=== PATIENT | male | born 1975 | race African-American/Black ===

== ENCOUNTER 2017-07-12 19:29 | Inpatient (IN) | payer OTHER, MEDICARE ==
[~2017-07-12] VITALS: Ht 182.9 cm; Wt 65.8 kg
[~2017-07-12 19:29] MED LIST: AUGMENTIN 875 M1 TAB PO; FERROUS SULFAT325 M3 PO; FOLIC ACID 1 MG PO; FOLIC ACID1 M1 PO; IBUPROFEN400 M1 PO; MOTRIN 600 MG600 MG PO; MULTIVITAMIN1 TAB PO; NAPROSYN 500 M500 MG PO; OMEPRAZOLE D/R20 MG PO; PERCOCET 325 MG1 TA2 PO; PERCOCET 5-3251 EACH PO; TRAMADOL HCL50 M1 PO
--- NOTE | 2017-07-12 19:56 | ED CARDIAC/CP/PALPITATIONS ---
History of Present Illness General Chief Complaint: General Adult Stated Complaint: BIBA FOR RAPID A. FIB Source: patient, old records, EMS Exam Limitations: no limitations Vital Signs & Intake/Output Vital Signs & Intake/Output Vital Signs Date Time Temp Pulse Resp B/P B/P Pulse O2 O2 Flow FiO2 Mean Ox Delivery Rate 07/12 2302 97.1 61 16 146/73 97 Room Air 07/12 2016 81 16 133/85 97 Room Air 07/12 2008 164 162/82 07/12 2000 168 07/12 1954 181 07/12 1946 182 07/12 1945 181 07/12 1944 97.8 182 20 143/84 99 Room Air 07/12 1940 177 Triage Note: PT BIBA AFTER BEGINNING TO FEEL PALPITATIONS DURING A CLASS. INSTRUCTOR ON SITE MEASURED SBP IN 180s AND HR IN 180s. EMS ON SCENE FOUND SAME. BG IN 140s. ADENOSINE x2 AND CARDIZEM 20 WITHOUT EFFECT. #16 PLACED IN FIELD. PT ARRIVES A&O, ONLY C/O PALPITATIONS, NO CP Triage Nurses Notes Reviewed? yes Onset: Just prior to arrival Duration: minute(s):, constant, continues in ED Timing: recent history Quality/Severity: moderate, severe Location: substernal Radiation: no radiation Activities at Onset: activity Prior Chest Pain/Card Workup: no prior cardiac workup Modifying Factors: Worsens With: exercise, movement. Nitro Today/Relief: no nitro taken today Aspirin Today: no aspirin today Associated Symptoms: weakness HPI: Prior to admission patient was EMt class and felt palpitations and rapid heart rate worse with exertion. He denies fever chills nausea vomiting diarrhea abdominal pain chest pain shortness of breath headache dysuria rash bleeding stimulate use tobacco use. (Poncho MARX,Cristian) Allergies Coded Allergies: meperidine (From DEMEROL) (Intermediate, NAUSEA 01/01/16) Sulfa (Sulfonamide Antibiotics) (UNKNOWN 07/12/17) Reconcile Medications Acetylcysteine (NAC) (Unknown Strength) CAPSULE 500 MG PO DAILY SUPPLEMENT ( Reported) Ferrous Gluconate (IRON) (Unknown Strength) TABLET (Unknown Dose) PO Q30D SUPPLEMENT (Reported) Phosphatidyl Serine (Phosphatidylserine) (Unknown Strength) POWDER (Unknown Dose) PO DAILY SUPPLEMENT (Reported) [PROTLYTIC ENZYME] 600 MG PO BID SUPPLEMENT (Reported) Vitamin B Complex 1 EACH CAPSULE 1 CAP PO DAILY SUPPLEMENT (Reported) (Malika MARX,Benjamin Simms) Past History Travel History Traveled to [place] past 21 day No Medical History Any Pertinent Medical History? see below for history Neurological: NONE EENT: NONE Cardiovascular: heart murmur Respiratory: O2 SAT 90% AT BASELINE R/T BAD CASE OF PNEUMONIA W/ RESULTING SCAR TISSUE Gastrointestinal: NONE Hepatic: NONE Renal: NONE Musculoskeletal: NONE Psychiatric: NONE Endocrine: NONE Blood Disorders: sickle cell disease Cancer(s): NONE SWITCHER/Reproductive: NONE Other Medical Hx: Pulmonary coccidioidomycosis History of MRSA: No History of VRE: No History of CDIFF: No Influenza Vaccine: 01/20/13 Surgical History Surgical History: cholecystectomy Psychosocial History Who do you live with Other (see notes) Services at Home None What is your primary language Solomon Islander Tobacco Use: Never used ETOH Use: denies use Family History Family History, If Any: FATHER Sickle cell trait MOTHER Sickle cell trait Hx Contributory? No (Cristian Isaac MD) Review of Systems Review of Systems Constitutional: Reports: no symptoms. EENTM: Reports: no symptoms. Respiratory: Reports: no symptoms. Cardiovascular: Reports: see HPI, palpitations. GI: Reports: no symptoms. Genitourinary: Reports: no symptoms. Musculoskeletal: Reports: no symptoms. Skin: Reports: no symptoms. Neurological/Psychological: Reports: no symptoms. Hematologic/Endocrine: Reports: no symptoms. Immunologic/Allergic: Reports: no symptoms. All Other Systems: Reviewed and Negative (Cristian Isaac MD) Physical Exam Physical Exam General Appearance: well developed/nourished, alert, awake, anxious, mild distress, thin Head: atraumatic, normal appearance Eyes: Bilateral: normal appearance, PERRL, EOMI. Ears, Nose, Throat: normal pharynx, normal ENT inspection, hearing grossly normal Neck: normal inspection, supple, full range of motion, no midline tenderness Respiratory: normal breath sounds, chest non-tender, no respiratory distress, quiet respiration, lungs clear Cardiovascular: regular rate/rhythm, normal peripheral pulses, tachycardia, norml femoral pulses equa Peripheral Pulses: 4+ carotid (R), 4+ carotid (L) Gastrointestinal: normal bowel sounds, soft, non-tender Back: normal inspection, normal range of motion Extremities: normal inspection, normal capillary refill, normal range of motion, no edema Neurologic/Psych: no motor/sensory deficits, awake, alert, oriented x 3, normal gait, normal mood/affect, onion tier II-XII nml as tested Reflexes: 2+: bicep (R), bicep (L). Skin: intact, normal color, warm/dry Lymphatic: no anterior cervical ezra Core Measures ACS in differential dx? Yes CVA/TIA Diagnosis No Sepsis Present: No Sepsis Focused Exam Completed? No (Poncho MARX,Cristian) Progress Differential Diagnosis: atrial fibrillation, hyperkalemia, hyperthyroid, PSVT, V -fib/V-Tach, WPW syndrome Plan of Care: Orders Procedure Date/time Status Nothing by Mouth 07/13 B Active Patient Data 07/13 2323 Active Saline Lock 07/[address] in observation 07/12 2250 Active Misc Message 07/12 2250 Active ED Holding Orders 07/12 2250 Active Vital Signs 07/12 2250 Active Code Status 07/12 2250 Active EKG 07/12 2029 Active TOTAL TRIODOTHYROXINE 07/12 1945 Complete FREE T4 07/12 1945 Complete TSH REFLEX 07/12 1934 Complete TROPONIN LEVEL 07/12 1934 Complete MAGNESIUM 07/12 1934 Complete COMPREHENSIVE METABOLIC PANEL 07/12 1934 Complete CBC WITHOUT DIFFERENTIAL 07/12 1934 Complete EKG 07/12 1930 Active Current Medications Sig/[place] Start time Last Medication Dose Stop Time Status Admin Adenosine 12 MG ONCE ONE 07/12 2014 CAN (Adenocard) 07/13 2015 Diltiazem HCl 20 MG ONCE ONE 07/12 2014 CAN (Cardizem) 07/13 2015 Adenosine 12 MG ONCE ONE 07/13 1999 CAN (Adenocard) 07/12 2000 Adenosine 12 MG ONCE ONE 07/13 1999 CAN (Adenocard) 07/12 2000 Magnesium Sulfate 1 GM Q2H 07/13 1999 AC 07/12 (Mag Sulfate in D5) 07/12 6099 195 Dextrose/Water 100 ML (D5W) Laboratory Tests 07/12/171945: Anion Gap 18 H, Estimated GFR > 60, BUN/Creatinine Ratio 15.8, Glucose 128 H, Calcium 9.0, Magnesium 1.6, Total Bilirubin 6.5 H, AST 65 H, ALT 48, Alkaline Phosphatase 89, Troponin I < 0.01, Total Protein 8.7 H, Albumin 4.7, Globulin 4.0, Albumin/Globulin Ratio 1.2, Free T4 1.43, Total T3 0.91 L, TSH &T3 &Free T4 Intrp 5.510 H, CBC w Diff MAN DIFF ORDERED, RBC 1.94 L, MCV 96.8 H, MCH 34.3 H, MCHC 35.5, RDW 28.3 H, MPV 7.6, Gran % 72.5, Lymphocytes % 17.5 L, Monocytes % 8.1, Eosinophils % 1.5, Basophils % 0.4, Absolute Granulocytes 16.7 H, Segmented Neutrophils 81 H, Band Neutrophils 1, Absolute Lymphocytes 4.0 H, Lymphocytes 14 L, Monocytes 4, Absolute Monocytes 1.9 H, Absolute Eosinophils 0.4, Absolute Basophils 0.1, Platelet Estimate VERIFIED BY SMEAR, Polychromasia 1+, Poikilocytosis 2+, Anisocytosis 2+, Macrocytic Cells 1+, Fld Total RBCs Counted 100 Initial ED EKG: rhythm (SVT), RBBB Prior EKG: changed Hand-Off Endorsed To: Benjamin Daly MD Endorsed Time: 2018 Pending: consult, labs Comments: Miscommunication of adenosine 12mg IV x2 given as cardizem 12 mg IV x2 (Poncho MARX,Cristian) CXR Impression: no acute abnormality, no infiltrates, normal size heart, normal mediastinum, PATIENT: CARMENZA REYNA PRESENT AGE: 41 PATIENT ACCOUNT NO: [id number] : 75 LOCATION: [facility] ORDERING PHYSICIAN: Benjamin Daly MD SERVICE DATE: 07/12/17 EXAM TYPE: RAD - XRY- PORTABLE CHEST XRAY EXAMINATION: XR PORTABLE CHEST CLINICAL INFORMATION: Palpitations COMPARISON: 01/07/2016 TECHNIQUE: Portable frontal view of the chest was obtained. FINDINGS: No acute finding here. Chronic change in the right upper lung zone. No obvious failure or infiltrate. No effusion. IMPRESSION: No convincing evidence for an acute process portable chest. DICTATED BY: Darek Valdivia MD DATE/TIME DICTATED:07/12/172029 COMMERCIAL LITIGATION PARALEGAL:JAMIE DATE/TIME TRANSCRIBED:07/12/172029 CONFIDENTIAL, DO NOT COPY WITHOUT APPROPRIATE AUTHORIZATION. <Electronically signed in Other Vendor System> SIGNED BY: Darek Valdivia MD 07/12/172033 Repeat EKG: changed (nsr,80, no delta waves) (Malika MARX,Benjamin Simms) Departure Departure Disposition: STILL A PATIENT Condition: Stable Clinical Impression Primary Impression: SVT (supraventricular tachycardia) Secondary Impressions: RBBB Referrals: Patient Has No Primary Care Dr (PCP) Departure Forms: Customer Survey General Discharge Information (Cristian Isaac MD) Departure Comments 07/12/17, 20:26, after multiple rounds of diltiazem, adenosine, amio 150mg iv, pt recalcitrant to interventions. Pt then given lopressor 5mg iv, pt converted to nsr in 80's. Observation Note Spoke With: Kenneth Valverde MDjenn Place Patient In: Non-ED OBS Care Area Rationale for Observation: My rational for observation is as follows . pt with svt, requiring multiple rounds of medications to return to NSR.... pt merits monitoring, serial trops, ekg's, cards eval in am. discussed with dr. tobi lawson. (Malika MARX,Benjamin Simms) Critical Care Note Critical Care Note Critical Care Time: 30-74 min (40) (Cristian Isaac MD)
[2017-07-12 19:58] LABS: ABSOLUTE BASOPHIL COUNT 0.1 /CUMM (0.0-0.2); ABSOLUTE EOSINOPHIL COUNT 0.4 /CUMM (0.0-0.7); ABSOLUTE GRANULOCYTE CT 16.7 /CUMM (1.4-6.5); ABSOLUTE MONOCYTE COUNT 1.9 /CUMM (0.10-0.60); BASOPHIL % 0.4 % (0.0-2.0); EOSINOPHIL % 1.5 % (0-5); GRANULOCYTE % 72.5 % (42.2-75.2); MEAN CORPUSCULAR HGB 34.3 PG (27.0-31.0); MEAN CORPUSCULAR HGB CONC 35.5 G/DL (33.0-37.0); MEAN CORPUSCULAR VOLUME 96.8 FL (80.0-94.0); MEAN PLATELET VOLUME 7.6 FL (7.4-10.4); PLATELET COUNT 616 /CUMM (130-400); RBC DISTRIBUTION WIDTH 28.3 % (11.5-14.5); RED BLOOD CELL CT 1.94 /CUMM (4.70-6.10)
[2017-07-12 20:03] LABS: HEMATOCRIT 18.8 % (42-52)
[2017-07-12] MEDS ORDERED: NAC600 M1 PO (20:19)
[2017-07-12] MEDS ORDERED: VITAMIN B COMP1 EACH PO (20:20)
[2017-07-12] MEDS ORDERED: [UNRECOGNIZED DRUG - OTHER] PO (20:20)
[2017-07-12] MEDS ORDERED: IRON256 MG PO (20:21)
[2017-07-12] MEDS ORDERED: PHOSPHATIDYLSERI1 GM PO (20:22)
--- NOTE | 2017-07-12 20:34 | RADIOLOGY REPORT ---
EXAMINATION: XR PORTABLE CHEST CLINICAL INFORMATION: Palpitations COMPARISON: 01/07/2016 TECHNIQUE: Portable frontal view of the chest was obtained. FINDINGS: No acute finding here. Chronic change in the right upper lung zone. No obvious failure or infiltrate. No effusion. IMPRESSION: No convincing evidence for an acute process portable chest.
--- NOTE | 2017-07-12 23:25 | History & Physical ---
Yusef Bradshaw MD 07/12/17 7805: General Information and HPI History of Present Illness: Mr. Reyna is a 41-year-old male with past medical history of sickle cell disease who presents with complaints of palpitations. 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 He alerted the class instructor who took his blood pressure and heart rate noticed that both were greatly elevated. He then decided to come in for further evaluation. In the field, but did initiate tachycardia medical protocol. In the emergency room, the protocol was again initiated and his rhythm broke. The patient has had full episodes like this previously. 4 years ago, he had a complete workup including Holter monitoring that was negative. He also had 2 episodes in the past few weeks that went away with deep breathing. At this time of interview, the patient now feels much better. He denies any smoking, alcohol use, recreational drug use. Of note, the patient does not take any preventative medications for his sickle cell disease and instead relies on naturopathic medicine including acetylcysteine, ferrous gluconate, phosphatidylserine, protlytic enzyme, and vitamin B complex. Allergies/Medications Allergies: Coded Allergies: meperidine (From DEMEROL) (Intermediate, NAUSEA 01/01/16) Sulfa (Sulfonamide Antibiotics) (UNKNOWN 07/12/17) Home Med list Acetylcysteine (NAC) (Unknown Strength) CAPSULE 500 MG PO DAILY SUPPLEMENT ( Reported) Ferrous Gluconate (IRON) (Unknown Strength) TABLET (Unknown Dose) PO Q30D SUPPLEMENT (Reported) Phosphatidyl Serine (Phosphatidylserine) (Unknown Strength) POWDER (Unknown Dose) PO DAILY SUPPLEMENT (Reported) [PROTLYTIC ENZYME] 600 MG PO BID SUPPLEMENT (Reported) Vitamin B Complex 1 EACH CAPSULE 1 CAP PO DAILY SUPPLEMENT (Reported) Past History Travel History Traveled to [place] past 21 day No Medical History Neurological: NONE EENT: NONE Cardiovascular: heart murmur Respiratory: O2 SAT 90% AT BASELINE R/T BAD CASE OF PNEUMONIA W/ RESULTING SCAR TISSUE Gastrointestinal: NONE Hepatic: NONE Renal: NONE Musculoskeletal: NONE Psychiatric: NONE Endocrine: NONE Blood Disorders: sickle cell disease Cancer(s): NONE LIVING NURSE/Reproductive: NONE Other Medical Hx: Pulmonary coccidioidomycosis History of MRSA: No History of VRE: No History of CDIFF: No Surgical History Surgical History: cholecystectomy Past Family/Social History Family History Relations & Conditions if any FATHER Sickle cell trait MOTHER Sickle cell trait Psychosocial History Who Do You Live With? spouse Services at Home: None Primary Language: Lao ETOH Use: denies use Functional Ability ADLs Independent: dressing, eating, toileting, bathing. Ambulation: independent IADLs Independent: shopping, housework, finances, food prep, telephone, transportation , medication admin. Review of Systems Review of Systems Constitutional: Reports: no symptoms. EENTM: Reports: no symptoms. Cardiovascular: Reports: see HPI. Respiratory: Reports: no symptoms. GI: Reports: no symptoms. Genitourinary: Reports: no symptoms. Musculoskeletal: Reports: no symptoms. Skin: Reports: no symptoms. Neurological/Psychological: Reports: no symptoms. Hematologic/Endocrine: Reports: no symptoms. Immunologic/Allergic: Reports: no symptoms. All Other Systems: Reviewed and Negative Exam & Diagnostic Data Last 24 Hrs of Vital Signs/I&O Vital Signs Date Time Temp Pulse Resp B/P B/P Pulse O2 O2 Flow FiO2 Mean Ox Delivery Rate 07/13 0148 97.9 58 20 160/80 97 Nasal 2.0L Cannula 07/13 0142 Nasal 2.0L Cannula 07/13 0125 96.4 56 20 165/75 97 Nasal 2.0L Cannula 07/12 2302 97.1 61 16 146/73 97 Room Air 07/12 2016 81 16 133/85 97 Room Air 07/12 2008 164 162/82 07/12 2000 168 07/12 1954 181 07/12 1946 182 07/12 1945 181 07/12 1944 97.8 182 20 143/84 99 Room Air 07/12 1940 177 Intake & Output 07/13 0800 07/13 0000 07/12 1600 Intake Total 200 Output Total Balance 200 Intake, IV 200 Patient 64.183 kg Weight Physical Exam General Appearance Alert, Oriented X3, Cooperative, No Acute Distress Skin No Rashes, No Breakdown, No Significant Lesion Cardiovascular Regular Rate, Normal S1, Normal S2 Lungs Clear to Auscultation Abdomen Normal Bowel Sounds, Soft, No Tenderness Extremities No Edema, Normal Pulses, No Tenderness/Swelling Last 24 Hrs of Labs/Juan Pablo: Laboratory Tests 07/12/171945: Anion Gap 18 H, Estimated GFR > 60, BUN/Creatinine Ratio 15.8, Glucose 128 H, Calcium 9.0, Magnesium 1.6, Total Bilirubin 6.5 H, AST 65 H, ALT 48, Alkaline Phosphatase 89, Troponin I < 0.01, Total Protein 8.7 H, Albumin 4.7, Globulin 4.0, Albumin/Globulin Ratio 1.2, Free T4 1.43, Total T3 0.91 L, TSH &T3 &Free T4 Intrp 5.510 H, CBC w Diff MAN DIFF ORDERED, RBC 1.94 L, MCV 96.8 H, MCH 34.3 H, MCHC 35.5, RDW 28.3 H, MPV 7.6, Gran % 72.5, Lymphocytes % 17.5 L, Monocytes % 8.1, Eosinophils % 1.5, Basophils % 0.4, Absolute Granulocytes 16.7 H, Segmented Neutrophils 81 H, Band Neutrophils 1, Absolute Lymphocytes 4.0 H, Lymphocytes 14 L, Monocytes 4, Absolute Monocytes 1.9 H, Absolute Eosinophils 0.4, Absolute Basophils 0.1, Platelet Estimate VERIFIED BY SMEAR, Polychromasia 1+, Poikilocytosis 2+, Anisocytosis 2+, Macrocytic Cells 1+, Fld Total RBCs Counted 100 Assessment/Plan Assessment: Mr. Reyna is a 41-year-old male with past medical history of sickle cell disease who presents with complaints of palpitations. On presentation, vital signs were T 97.8, HR 182, RR 20, BP 143/84, saturating 98% room air. Laboratories were significant for white cell count 23.0, hemoglobin 6.7, platelets 616, MCV 76.8, chloride 108, carbon dioxide 15, glucose 128, total bilirubin 6.5, AST 65, ALT 48, alkaline phosphatase 89, troponin less than 0.01, TSH 5.51, free T4 1 0.43. Chest x-ray was negative for any acute processes. He received metoprolol, diltiazem, magnesium, and amiodarone in the emergency room. He'll be placed in observation on telemetry and treated for the following problems: 1. SVT 2. Sickle cell disease 3. Leukocytosis 4. Thrombocytosis 5. Elevated TSH #SVT: Patient presents with complaints of palpitations and was found to have supraventricular tachycardia and right bundle branch block on EKG. His rhythm has since normalized. It is likely that he has an underlying conduction disease. -Cardiology consult -EKG and troponins 3 -Telemetry monitoring -TTE #Sickle cell disease: Patient has anemia with hyperbilirubinemia likely secondary to the sickle cell disease. He was offered blood transfusion but refused. -Continue to monitor -Hold home supplements #Leukocytosis/Thrombocytosis: Unclear etiology. May be related to the stress of the supraventricular tachycardia. -Continue to monitor #Elevated TSH: Patient has normal free T4. -Repeat thyroid function tests in 4-6 weeks DVT prophylaxis with enoxaparin Regular diet Full code As Ranked By This Provider Problem List: 1. SVT (supraventricular tachycardia) Core Measures/Misc (01/06) Acute Coronary Syndrome ACS Diagnosis: No Congestive Heart Failure Congestive Heart Failure Diagnosis No Cerebrovascular Accident CVA/TIA Diagnosis: No VTE (View Protocol) VTE Risk Factors Age>40 No Mechanical VTE Prophylaxis d/t N/A MechProphylax Ordered No VTE Pharm Prophylaxis d/t NA PharmProphylax ordered Sepsis (View protocol) Sepsis Present: No Abram MARX, [facility] 07/13/17 0114: Attending MD Review Statement Attending Statement Attending MD Statement: examined this patient, discuss w/resident/PA/ELECTRONIC TEST TECHNICIAN, agreed w/resident/PA/ELECTRONIC TEST TECHNICIAN, discussed with family, reviewed images, amended to note Attending Assessment/Plan: 41 yo M with sickle cell disease, is brought in for evaluation of palpitations. Patient was the EMT training class, where is they were testing physical agility by asking candidates to perform 200 chest compressions over a minute. Patient reported feeling palpitations while doing this test. His BP was elevated and his HR was in 180's. EMS found he was in SVT received adenosine and cardizem without effect. In the ER, he was given adenosine, cardizem, amiodarone and metoprolol, after which patient's rhythm converted to sinus rhythm. Patient feels well at this point, denies any symptoms. Patient reports a similar episode of palpitations in the past 1 week which resolved with deep breathing. He had seen a graphics programmer ([place]) 4 yrs ago for palpitations, had a Holter monitor which was normal. About his sickle cell disease, last pain crisis was in 2015, was previously seen by [facility] Dr. Aaron Gillis ([facility]) but has not followed up with him for over 2 yrs. Patient's sickle cell disease is well controlled on solar project manager medications. Vitals are stable. Exam is unremarkable. Labs: WBC 23 (chronic), H/H 6.7/18.8, bicarb 15, AG 18, glucose 128, T. Bili 6.5 , D. Bili 2.5, AST 65, ALT 48, trop neg. TSH 5.510, free T4 normal. CXR: no acute process. EKG: initial showed narrow complex tachycardia SVT, repeat EKG after multiple meds sinus rhythm @ 50-60's, RBBB. Assessment and plan: 1. Supraventricular tachycardia 2. Sickle cell disease with anemia (H/H at baseline) not in crisis 3. Leukocytosis (chronic) ?reactive, no clear source 4. Elevated TSH but normal free T4 - 23 hour observation on Telemetry - Monitor for recurrent SVT - Serial EKG and troponin - Obtain echo cardiogram - Obtain Cardio consult - Repeat TSH and free T4 in AM - Check urine tox screen - Would hold off on all naturopathic meds and repeat blood work including thyroid functions, LFTs. - Patient is not keen on receiving blood transfusion as his H/H is at baseline. He is not keen on investigating the leukocytosis or elevated TSH levels. Family member at bedside, who is a solar project manager and prescribes him the medications NAC, proteolytic enzyme, phosphatidyl serine, etc. DVT ppx Lovenox. Full code. Observation Initial Note - I have personally examined REYNABROOKSCARMENZA P on 07/13/17 at 0114. The disposition of CARMENZA REYNA is uncertain at this time and before a determination can be made, he requires a period of observation for the following reasons [SVT] Carlos MARX,[facility] 07/13/17 0502: Resident Review Statement Resident Statement: examined this patient, discussed with management internship, agreed with management internship Other Findings: 41-year-old male with a past medical history of sickle cell disease who presented with a chief complaint of palpitation. The patient was in EMT class doing chest compressions when he suddenly felt palpitations for which the class instructor checked his vital and notices his heartrate to be in the 180s. He reports similar episodes in the past with the most recent one being around 2 weeks ago. These episodes usually last for minutes and resolved spontaneous. The patient was BIBA, he was given 2 rounds of adenosine and [address] push of [address]em on the way to the hospital. On admission his heartrate was still in 180s and the rhythm looked as supraventricular tachycardia. After 2 pitting Cardizem push that was followed by IV Lopressor he converted back to normal sinus rhythm. Patient denies chest pain, dizziness, or shortness breath. He denies smoking, alcohol use, or illicit drug use. He has not taken any medication however his girlfriend is medicating him with multiple natural supplements for sickle cell anemia. He is taking acetylcysteine, ferrous gluconate, phosphatidylserine, protlytic enzyme, and vitamin B complex. When he was examined he was in normal sinus rhythm with a heart rate in the 50s, blood pressure 140s over 80s, and saturating well on room air. WBCs was 23,000, hemoglobin 6.7(baseline), platelets 616, MCV 76, total bilirubin 6.5 with a direct being 2.5, TSH 5.5, normal T4 and low T3. Problem list * Supraventricular tachycardia with RBBB * Sickle cell disease with microcytic anemia * Leukocytosis and thrombocytosis * Isolated T3 hypothyroidism picture(could be related to acute illness) Plan * Monitor in telemetry and rule out ACS with serial EKG and troponin * Echocardiogram * Cardiology consult in the morning * The patient is strongly refusing blood transfusion * Hold all home supplements and repeat thyroid function tests later during admission * Repeat CBCs after he stable and normal sinus rhythm * Full code * Regular diet * DVT prophylaxis with Alps, we will avoid pharmacological given severe anemia.
[2017-07-13 01:48] VITALS: BP 160/80
--- NOTE | 2017-07-13 06:38 | PN- Housestaff ---
Subjective Follow-up For: Sickle cell disease Supraventricular tachycardia Elevated TSH Subjective: Afebrile, hemodynamically stable, heart rate in 60s, and saturating well on 2 L oxygen. The patient denies any current active complaints, he is laying on bed looks relaxed and comfortable. No acute overnight events reported. Patient hemoglobin is 6 and he continue to refuse blood transfusion Review of Systems Constitutional: Reports: see HPI. Objective Last 24 Hrs of Vital Signs/I&O Vital Signs Date Time Temp Pulse Resp B/P B/P Pulse O2 O2 Flow FiO2 Mean Ox Delivery Rate 07/13 0715 98.4 66 20 120/62 96 Nasal Cannula 07/13 0148 97.9 58 20 160/80 97 Nasal 2.0L Cannula 07/13 0142 Nasal 2.0L Cannula 07/13 0125 96.4 56 20 165/75 97 Nasal 2.0L Cannula 07/12 2302 97.1 61 16 146/73 97 Room Air 07/12 2016 81 16 133/85 97 Room Air 07/12 2008 164 162/82 07/12 2000 168 07/12 1954 181 07/12 1946 182 07/12 1945 181 07/12 1944 97.8 182 20 143/84 99 Room Air 07/12 194 177 Intake & Output 07/13 1600 07/13 0800 07/13 0000 Intake Total 200 Output Total Balance 200 Intake, IV 200 Patient 64.183 kg Weight Physical Exam General Appearance: Alert, Oriented X3, Cooperative, No Acute Distress Skin: No Rashes HEENT: Atraumatic, PERRLA, EOMI, Mucous Membr. moist/pink Neck: No JVD Cardiovascular: Regular Rate, Normal S1, Normal S2, No Murmurs Lungs: Clear to Auscultation, Normal Air Movement Abdomen: Soft, No Tenderness Neurological: Normal Speech Extremities: No Clubbing, No Cyanosis, No Edema Current Medications: Current Medications Sig/[place] Start time Last Medication Dose Route Stop Time Status Admin Adenosine 12 MG ONCE ONE 07/12 2014 CAN IV 07/13 2015 Adenosine 0 .STK-MED ONE 07/12 2012 DC IV Adenosine 12 MG ONCE ONE 07/13 1999 CAN IV 07/12 2000 Adenosine 12 MG ONCE ONE 07/13 1999 CAN IV 07/12 2000 Amiodarone HCl 0 .STK-MED ONE 07/12 1954 DC .ROUTE Amiodarone HCl/ 150 MG ONCE ONE 07/13 1999 DC 07/12 Dextrose IV 07/12 N/A 1 UNIT Diltiazem HCl 12 MG ONCE ONE 07/12 2029 DC 07/12 IV PUSH 07/12 Diltiazem HCl 12 MG ONCE ONE 07/12 2029 DC 07/12 IV PUSH 07/12 Diltiazem HCl 20 MG ONCE ONE 07/12 2014 CAN IV 07/13 2015 Diltiazem HCl 0 .STK-MED ONE 07/12 2012 DC .ROUTE Diltiazem HCl 0 .STK-MED ONE 07/12 2004 DC .ROUTE Diltiazem HCl 20 MG ONCE ONE 07/13 1999 DC 07/12 IV PUSH 07/12 Diltiazem HCl 0 .STK-MED ONE 07/12 1949 DC .ROUTE Magnesium Sulfate 1 GM Q2H 07/13 1999 DC 07/12 Dextrose/Water 100 ML IV 07/12 6797 195 Metoprolol Tartrate 5 MG ONCE ONE 07/12 2014 DC IV 07/13 2015 Metoprolol Tartrate 5 MG ONCE ONE 07/12 2014 DC 07/12 IV 07/13 2015 2009 Metoprolol Tartrate 50 MG ONCE ONE 07/12 2014 DC PO 07/13 2015 Metoprolol Tartrate 0 .STK-MED ONE 07/12 2012 DC IV Last 24 Hrs of Lab/Juan Pablo Results Last 24 Hrs of Labs/Mics: Laboratory Tests 07/13/17 0714: Troponin I 0.06 07/12/171945: Anion Gap 18 H, Estimated GFR > 60, BUN/Creatinine Ratio 15.8, Glucose 128 H, Calcium 9.0, Magnesium 1.6, Total Bilirubin 6.5 H, Direct Bilirubin 2.5 H, AST 65 H, ALT 48, Alkaline Phosphatase 89, Troponin I < 0.01, Total Protein 8.7 H, Albumin 4.7, Globulin 4.0, Albumin/Globulin Ratio 1.2, Free T4 1.43, Total T3 0.91 L, TSH &T3 &Free T4 Intrp 5.510 H, CBC w Diff MAN DIFF ORDERED, RBC 1.94 L, MCV 96.8 H, MCH 34.3 H, MCHC 35.5, RDW 28.3 H, MPV 7.6, Gran % 72.5, Lymphocytes % 17.5 L, Monocytes % 8.1, Eosinophils % 1.5, Basophils % 0.4, Absolute Granulocytes 16.7 H, Segmented Neutrophils 81 H, Band Neutrophils 1, Absolute Lymphocytes 4.0 H, Lymphocytes 14 L, Monocytes 4, Absolute Monocytes 1.9 H, Absolute Eosinophils 0.4, Absolute Basophils 0.1, Platelet Estimate VERIFIED BY SMEAR, Polychromasia 1+, Poikilocytosis 2+, Anisocytosis 2+, Macrocytic Cells 1+, Fld Total RBCs Counted 100 Assessment/Plan Assessment: 41-year-old male with past medical history of sickle cell disease who presented because of palpitation. He was found to have supraventricular tachycardia with RBBB. The patient H&H was found to be 6.7 & 18.8. The patient refused blood transfusion. Currently he is in normal sinus rhythm and denies any active complaints. Problem list * Supraventricular tachycardia with RBBB * Sickle cell disease with microcytic anemia * Elevated bilirubin mainly in direct mostly secondary to hemolytic anemia * Leukocytosis and thrombocytosis may be reactive * Isolated T3 hypothyroidism picture(could be related to acute illness) Plan * Monitor in telemetry and rule out ACS with serial EKG and troponin first 2 sets were negative * Pending Echocardiogram * We will place cardiology consult in the morning * The patient is strongly refusing blood transfusion * Hold all home supplements and repeat thyroid function tests later during admission * Repeat CBCs after he stable and normal sinus rhythm to follow thrombocytosis and leukocytosis * Full code * Regular diet * DVT prophylaxis with Alps, we will avoid pharmacological given severe anemia. Problem List: 1. RBBB 2. SVT (supraventricular tachycardia) Pain Ratin Pain Location: NA Pain Goal: Remain pain free Pain Plan: See A&P Tomorrow's Labs & Rationales: CBC and BEP
[2017-07-13 07:15] VITALS: BP 120/62
--- NOTE | 2017-07-13 10:38 | PN- Cardiology ---
See Addendum Subjective Subjective: Patient is feeling well this morning no recurrence of SVTs and approximately 24 hours no shortness of breath no lower extremity edema no chest pains no dizziness no palpitations. He is eager to know when he will be doing his echocardiogram Objective Vital Signs and I&Os Vital Signs Date Time Temp Pulse Resp B/P B/P Pulse O2 O2 Flow FiO2 Mean Ox Delivery Rate 07/13 0800 Nasal 2.0L Cannula 07/13 0715 98.4 66 20 120/62 96 Nasal Cannula 07/13 0148 97.9 58 20 160/80 97 Nasal 2.0L Cannula 07/13 0142 Nasal 2.0L Cannula 07/13 0125 96.4 56 20 165/75 97 Nasal 2.0L Cannula 07/12 2302 97.1 61 16 146/73 97 Room Air 07/12 2016 81 16 133/85 97 Room Air 07/12 2008 164 162/82 07/12 2000 168 07/12 1954 181 07/12 1946 182 07/12 1945 181 07/12 1944 97.8 182 20 143/84 99 Room Air 07/12 1941 177 Intake & Output 07/13 1600 07/13 0800 07/13 0000 07/12 1600 07/12 0800 07/12 0000 Intake Total 200 Output Total Balance 200 Intake, IV 200 Patient 142 lb Weight Patient is alert and oriented appears comfortable and in no apparent distress HEENT shows slight conjunctival jaundice otherwise normal No jugular venous distention Good air entry bilaterally, clear lungs Systolic ejection murmur heard in the aortic area 3/6, also heard in the apical area with preserved S2 and good carotid upstroke. Abdomen is soft no mass No lower extremity edema good capillary refill Current Medications: Current Medications Sig/[place] Start time Last Medication Dose Route Stop Time Status Admin Adenosine 12 MG ONCE ONE 07/12 2014 CAN IV 07/13 2015 Adenosine 0 .STK-MED ONE 07/12 2012 DC IV Adenosine 12 MG ONCE ONE 07/13 1999 CAN IV 07/12 2000 Adenosine 12 MG ONCE ONE 07/13 1999 CAN IV 07/12 2000 Amiodarone HCl 0 .STK-MED ONE 07/12 1954 DC .ROUTE Amiodarone HCl/ 150 MG ONCE ONE 07/13 1999 DC 07/12 Dextrose IV 07/12 N/A 1 UNIT Diltiazem HCl 12 MG ONCE ONE 07/12 2029 DC 07/12 IV PUSH 07/12 Diltiazem HCl 12 MG ONCE ONE 07/12 2029 DC 07/12 IV PUSH 07/12 Diltiazem HCl 20 MG ONCE ONE 07/12 2014 CAN IV 07/13 2015 Diltiazem HCl 0 .STK-MED ONE 07/12 2012 DC .ROUTE Diltiazem HCl 0 .STK-MED ONE 07/12 2004 DC .ROUTE Diltiazem HCl 20 MG ONCE ONE 07/13 1999 DC 07/12 IV PUSH 07/12 Diltiazem HCl 0 .STK-MED ONE 07/12 1949 DC .ROUTE Magnesium Sulfate 1 GM Q2H 07/13 1999 DC 07/12 Dextrose/Water 100 ML IV 07/12 Metoprolol Tartrate 5 MG ONCE ONE 07/12 2014 DC IV 07/13 2015 Metoprolol Tartrate 5 MG ONCE ONE 07/12 2014 DC 07/12 IV 07/13 2015 2009 Metoprolol Tartrate 50 MG ONCE ONE 07/12 2014 DC PO 07/12 2016 Metoprolol Tartrate 0 .STK-MED ONE 07/12 2012 DC IV Results Last 48 Hrs of Labs/Mics: Laboratory Tests 07/13/17 0714: Troponin I 0.06 07/12/171945: Anion Gap 18 H, Estimated GFR > 60, BUN/Creatinine Ratio 15.8, Glucose 128 H, Calcium 9.0, Magnesium 1.6, Total Bilirubin 6.5 H, Direct Bilirubin 2.5 H, AST 65 H, ALT 48, Alkaline Phosphatase 89, Troponin I < 0.01, Total Protein 8.7 H, Albumin 4.7, Globulin 4.0, Albumin/Globulin Ratio 1.2, Free T4 1.43, Total T3 0.91 L, TSH &T3 &Free T4 Intrp 5.510 H, CBC w Diff MAN DIFF ORDERED, RBC 1.94 L, MCV 96.8 H, MCH 34.3 H, MCHC 35.5, RDW 28.3 H, MPV 7.6, Gran % 72.5, Lymphocytes % 17.5 L, Monocytes % 8.1, Eosinophils % 1.5, Basophils % 0.4, Absolute Granulocytes 16.7 H, Segmented Neutrophils 81 H, Band Neutrophils 1, Absolute Lymphocytes 4.0 H, Lymphocytes 14 L, Monocytes 4, Absolute Monocytes 1.9 H, Absolute Eosinophils 0.4, Absolute Basophils 0.1, Platelet Estimate VERIFIED BY SMEAR, Polychromasia 1+, Poikilocytosis 2+, Anisocytosis 2+, Macrocytic Cells 1+, Fld Total RBCs Counted 100 Assessment/Plan Assessment/Plan Young man of 41 years of age with a history of sickle cell anemia presenting SVTs which have resolved since admission. Aortic ejection murmur likely physiological in the context of his chronic anemia. Echocardiogram to come tomorrow or Saturday. Continue telemetry? Yes
--- NOTE | 2017-07-13 11:14 | Cons- Cardiology ---
General Information and HPI Consulting Request Date of Consult: 07/13/17 Requested By: Abram MARX,Rudolph Reason for Consult: tachycardia Source of Information: patient, EMS Exam Limitations: no limitations History of Present Illness: Patient with history of sickle cell anemia who presented with palpitations and regular tachycardia with wide QRS which is suspicious for ventricular tachycardia although the patient has no history of coronary artery disease or cardiomyopathy. He was not converted with adenosine 12mg X 2, and converted with cardizem 10mg IV X 2. He had shorter episodes of the sort approximately one month ago. He may have had a holter perfomed at [facility] approximately 4 years ago. No history of syncope or chest pains, or sudden in the family. There is no precipitating factor which was identified (hemoglobin within his normal values, TSH slightly high, electrolytes are normal, no consumption of stimulants). Allergies/Medications Allergies: Coded Allergies: meperidine (From DEMEROL) (Intermediate, NAUSEA 01/01/16) Sulfa (Sulfonamide Antibiotics) (UNKNOWN 07/12/17) Home Med List: Acetylcysteine (NAC) (Unknown Strength) CAPSULE 500 MG PO DAILY SUPPLEMENT ( Reported) Ferrous Gluconate (IRON) (Unknown Strength) TABLET (Unknown Dose) PO Q30D SUPPLEMENT (Reported) Phosphatidyl Serine (Phosphatidylserine) (Unknown Strength) POWDER (Unknown Dose) PO DAILY SUPPLEMENT (Reported) [PROTLYTIC ENZYME] 600 MG PO BID SUPPLEMENT (Reported) Vitamin B Complex 1 EACH CAPSULE 1 CAP PO DAILY SUPPLEMENT (Reported) Current Medications: Current Medications Sig/[place] Start time Last Medication Dose Route Stop Time Status Admin Adenosine 12 MG ONCE ONE 07/12 2014 CAN IV 07/13 2015 Adenosine 0 .STK-MED ONE 07/12 2012 DC IV Adenosine 12 MG ONCE ONE 07/13 1999 CAN IV 07/12 2000 Adenosine 12 MG ONCE ONE 07/12 2000 CAN IV 07/12 2000 Amiodarone HCl 0 .STK-MED ONE 07/12 1954 DC .ROUTE Amiodarone HCl/ 150 MG ONCE ONE 07/13 1999 DC 07/12 Dextrose IV 07/12 N/A 1 UNIT Diltiazem HCl 12 MG ONCE ONE 07/12 2029 DC 07/12 IV PUSH 07/12 Diltiazem HCl 12 MG ONCE ONE 07/12 2029 DC 07/12 IV PUSH 03/23 2031 1946 Diltiazem HCl 20 MG ONCE ONE 07/12 2014 CAN IV 07/13 2015 Diltiazem HCl 0 .STK-MED ONE 07/12 2012 DC .ROUTE Diltiazem HCl 0 .STK-MED ONE 07/12 2004 DC .ROUTE Diltiazem HCl 20 MG ONCE ONE 07/13 1999 DC 07/12 IV PUSH 07/12 Diltiazem HCl 0 .STK-MED ONE 07/12 1949 DC .ROUTE Magnesium Sulfate 1 GM Q2H 07/13 1999 DC 07/12 Dextrose/Water 100 ML IV 07/12 5829 1959 Metoprolol Tartrate 5 MG ONCE ONE 07/12 2014 DC IV 07/13 2015 Metoprolol Tartrate 5 MG ONCE ONE 07/12 2014 DC 07/12 IV 07/12 Metoprolol Tartrate 50 MG ONCE ONE 07/12 2014 DC PO 07/13 2015 Metoprolol Tartrate 0 .STK-MED ONE 07/12 2012 DC IV Review of Systems Review of Systems: No chest pains or palpitations no syncope no paroxysmal nocturnal dyspnea no edema No nausea no vomiting no diarrhea No external bleeding observed No headache no visual changes no focal neurological symptoms Anxiety Past History Travel History Traveled to [place] past 21 day No Medical History Blood Transfusion Hx: Yes Neurological: NONE EENT: NONE Cardiovascular: heart murmur Respiratory: O2 SAT 90% AT BASELINE R/T BAD CASE OF PNEUMONIA W/ RESULTING SCAR TISSUE Gastrointestinal: NONE Hepatic: NONE Renal: NONE Musculoskeletal: NONE Psychiatric: NONE Endocrine: NONE Blood Disorders: sickle cell disease Cancer(s): NONE CASH CLERK/Reproductive: NONE Other Medical Hx: Pulmonary coccidioidomycosis Surgical History Surgical History: cholecystectomy Family History Relations & Conditions If Any: FATHER Sickle cell trait MOTHER Sickle cell trait Psychosocial History Who Do You Live With? spouse Services at Home: None Primary Language: Kyrgyz Smoking Status: Never Smoked ETOH Use: denies use Functional Ability ADLs Independent: dressing, eating, toileting, bathing. Ambulation: independent IADLs Independent: shopping, housework, finances, food prep, telephone, transportation , medication admin. Exam & Diagnostic Data Vital Signs and I&O Vital Signs Date Time Temp Pulse Resp B/P B/P Pulse O2 O2 Flow FiO2 Mean Ox Delivery Rate 07/13 0800 Nasal 2.0L Cannula 07/13 0715 98.4 66 20 120/62 96 Nasal Cannula 07/13 0148 97.9 58 20 160/80 97 Nasal 2.0L Cannula 07/13 0142 Nasal 2.0L Cannula 07/13 0125 96.4 56 20 165/75 97 Nasal 2.0L Cannula 07/12 2301 97.1 61 16 146/73 97 Room Air 07/12 2016 81 16 133/85 97 Room Air 07/12 2008 164 162/82 07/12 2000 168 07/12 1954 181 07/12 1946 182 07/12 1945 181 07/12 1944 97.8 182 20 143/84 99 Room Air 07/12 1940 177 Intake & Output 07/13 1600 07/13 0800 07/13 0000 07/12 1600 07/12 0800 07/12 0000 Intake Total 200 Output Total 400 Balance -400 200 Intake, IV 200 Output, Urine 400 Patient 142 lb Weight Physical Exam: Patient is alert and oriented in no apparent distress appears comfortable HEENT exam is grossly normal with the exception of slight jaundice of the conjunctiva There is no jugular venous distention trachea is midline neck is supple Good air entry bilaterally lungs are clear S1 and S2 are audible and normal intensity, there is a systolic ejection murmur audible in the left parasternal area as well as the apical area Abdomen is soft no mass palpated Good capillary refill, absence of lower extremity edema Labs/Juan Pablo Results: Laboratory Tests 07/13 Chemistry Sodium (137 - 145 mmol/L) 141 Potassium (3.5 - 5.1 mmol/L) 4.1 Chloride (98 - 107 mmol/L) 108 H Carbon Dioxide (22 - 30 mmol/L) 15 L Anion Gap (5 - 16) 18 H BUN (9 - 20 mg/dL) 19 Creatinine (0.7 - 1.2 mg/dL) 1.2 Estimated GFR (>60 ml/min) > 60 BUN/Creatinine Ratio (7 - 25 %) 15.8 Glucose (65 - 99 mg/dL) 128 H Calcium (8.4 - 10.2 mg/dL) 9.0 Magnesium (1.6 - 2.3 mg/dL) 1.6 Total Bilirubin (0.2 - 1.3 mg/dL) 6.5 H Direct Bilirubin (< 0.4 mg/dL) 2.5 H AST (17 - 59 U/L) 65 H ALT (21 - 72 U/L) 48 Alkaline Phosphatase (< 127 U/L) 89 Troponin I (<0.11 ng/ml) 0.06 < 0.01 Total Protein (6.3 - 8.2 g/dL) 8.7 H Albumin (3.5 - 5.0 g/dL) 4.7 Globulin (1.9 - 4.2 gm/dL) 4.0 Albumin/Globulin Ratio (1.1 - 2.2 %) 1.2 Free T4 (0.64 - 1.79 ng/dL) 1.43 Total T3 (0.97 - 1.69 ng/mL) 0.91 L TSH &T3 &Free T4 Intrp (0.27 - 4.20 uIU/mL) 5.510 H Hematology CBC w Diff MAN DIFF ORDERED WBC (4.8 - 10.8 /CUMM) 23.0 H RBC (4.70 - 6.10 /CUMM) 1.94 L Hgb (14.0 - 18.0 G/DL) 6.7 *L Hct (42 - 52 %) 18.8 *L MCV (80.0 - 94.0 FL) 96.8 H MCH (27.0 - 31.0 PG) 34.3 H MCHC (33.0 - 37.0 G/DL) 35.5 RDW (11.5 - 14.5 %) 28.3 H Plt Count (130 - 400 /CUMM) 616 H MPV (7.4 - 10.4 FL) 7.6 Gran % (42.2 - 75.2 %) 72.5 Lymphocytes % (20.5 - 51.1 %) 17.5 L Monocytes % (1.7 - 9.3 %) 8.1 Eosinophils % (0 - 5 %) 1.5 Basophils % (0.0 - 2.0 %) 0.4 Absolute Granulocytes (1.4 - 6.5 /CUMM) 16.7 H Segmented Neutrophils (42.2 - 75.2 %) 81 H Band Neutrophils (0.0 - 5.0 %) 1 Absolute Lymphocytes (1.2 - 3.4 /CUMM) 4.0 H Lymphocytes (20.5 - 51.1 %) 14 L Monocytes (1.7 - 9.3 %) 4 Absolute Monocytes (0.10 - 0.60 /CUMM) 1.9 H Absolute Eosinophils (0.0 - 0.7 /CUMM) 0.4 Absolute Basophils (0.0 - 0.2 /CUMM) 0.1 Platelet Estimate (ADEQUATE) VERIFIED BY SMEAR Polychromasia 1+ Poikilocytosis 2+ Anisocytosis 2+ Macrocytic Cells 1+ Other Body Source Fld Total RBCs Counted (%) 100 Diagnostic Data EKG Results regular tachycardia with wide QRS. converted to SR with NS repolarization changes in the anterior leads. CXR Results no infiltrate Assessment/Plan Assessment/Plan Patient with history of sickle cell anemia who presented with palpitations and regular tachycardia with wide QRS which is suspicious for ventricular tachycardia although the patient has no history of coronary artery disease or cardiomyopathy. There is no precipitating factor which was identified (hemoglobin within his normal values, TSH slightly high, electrolytes are normal, no consumption of stimulants). We will maintain the patient under telemetry for the moment and discussed the case with Dr. King from electrophysiology. Results of echocardiogram are pending but preliminary images looked grossly normal at bedside.. Consult Acknowledgment - Thank you for your consult request.
--- NOTE | 2017-07-13 13:03 | PN- Att Addend ---
Attending Addendum Attending Brief Note Patient seen and examined. Plan of care discussed with the medical team and the patient. Available lab work and radiology test reports were reviewed. Patient was admitted overnight for SVT. History was reviewed with the patient. He is in normal sinus rhythm now on a monitor and denies any further palpitations. He denies any nausea vomiting fever chills chest pains. Exam: General: Patient awake alert oriented without any distress CVS: S1 plus S2 without any murmur or gallops Chest: Few scattered crepitation without any wheeze. There is no respiratory distress. Abdomen: Soft non-tender, bowel sound present, no guarding or rebound SHEET METAL APPRENTICE: Awake alert oriented without any focal neuro deficit and follows commands appropriately Extremities: No edema; no clubbing or cyanosis noted Current Medications Sig/[place] Start time Last Medication Dose Route Stop Time Status Admin Adenosine 12 MG ONCE ONE 07/12 2014 CAN IV 07/13 2015 Adenosine 0 .STK-MED ONE 07/12 2012 DC IV Adenosine 12 MG ONCE ONE 07/13 1999 CAN IV 07/12 2000 Adenosine 12 MG ONCE ONE 07/13 1999 CAN IV 07/12 2000 Amiodarone HCl 0 .STK-MED ONE 07/12 1955 DC .ROUTE Amiodarone HCl/ 150 MG ONCE ONE 07/13 1999 DC 07/12 Dextrose IV 07/12 2008 1955 N/A 1 UNIT Diltiazem HCl 12 MG ONCE ONE 07/12 2029 DC 07/12 IV PUSH 07/12 Diltiazem HCl 12 MG ONCE ONE 07/12 2029 DC 07/12 IV PUSH 07/12 2030 194 Diltiazem HCl 20 MG ONCE ONE 07/12 2014 CAN IV 07/13 2015 Diltiazem HCl 0 .STK-MED ONE 07/12 2012 DC .ROUTE Diltiazem HCl 0 .STK-MED ONE 07/12 2004 DC .ROUTE Diltiazem HCl 20 MG ONCE ONE 07/13 1999 DC 07/12 IV PUSH 07/12 Diltiazem HCl 0 .STK-MED ONE 07/12 1950 DC .ROUTE Magnesium Sulfate 1 GM Q2H 07/13 1999 DC 07/12 Dextrose/Water 100 ML IV 07/12 2359 1959 Metoprolol Tartrate 5 MG ONCE ONE 07/12 2014 DC IV 07/13 2015 Metoprolol Tartrate 5 MG ONCE ONE 07/12 2014 DC 07/12 IV 07/12 Metoprolol Tartrate 50 MG ONCE ONE 07/12 2014 DC PO 07/13 2015 Metoprolol Tartrate 0 .STK-MED ONE 07/12 2012 DC IV Laboratory Tests 07/13/17 1205: Methadone Screen Pending, Barbiturate Screen Pending, Ur Phencyclidine Scrn Pending, Amphetamines Screen Pending, U Benzodiazepines Scrn Pending, Urine Cocaine Screen Pending, Urine Cannabis Screen Pending, Urine Color Pending, Urine Clarity Pending, Urine pH Pending, Ur Specific [place] Pending, Urine Protein Pending, Urine Ketones Pending, Urine Nitrite Pending, Urine Bilirubin Pending, Urine Urobilinogen Pending, Ur Leukocyte Esterase Pending, Ur Microscopic Pending, Urine Hemoglobin Pending, Urine Glucose Pending 07/13/17 0714: Troponin I 0.06 07/12/17 1946: Anion Gap 18 H, Estimated GFR > 60, BUN/Creatinine Ratio 15.8, Glucose 128 H, Calcium 9.0, Magnesium 1.6, Total Bilirubin 6.5 H, Direct Bilirubin 2.5 H, AST 65 H, ALT 48, Alkaline Phosphatase 89, Troponin I < 0.01, Total Protein 8.7 H, Albumin 4.7, Globulin 4.0, Albumin/Globulin Ratio 1.2, Free T4 1.43, Total T3 0.91 L, TSH &T3 &Free T4 Intrp 5.510 H, CBC w Diff MAN DIFF ORDERED, RBC 1.94 L, MCV 96.8 H, MCH 34.3 H, MCHC 35.5, RDW 28.3 H, MPV 7.6, Gran % 72.5, Lymphocytes % 17.5 L, Monocytes % 8.1, Eosinophils % 1.5, Basophils % 0.4, Absolute Granulocytes 16.7 H, Segmented Neutrophils 81 H, Band Neutrophils 1, Absolute Lymphocytes 4.0 H, Lymphocytes 14 L, Monocytes 4, Absolute Monocytes 1.9 H, Absolute Eosinophils 0.4, Absolute Basophils 0.1, Platelet Estimate VERIFIED BY SMEAR, Polychromasia 1+, Poikilocytosis 2+, Anisocytosis 2+, Macrocytic Cells 1+, Fld Total RBCs Counted 100 Vital Signs Date Time Temp Pulse Resp B/P B/P Pulse O2 O2 Flow FiO2 Mean Ox Delivery Rate 07/13 0800 Nasal 2.0L Cannula 07/13 0715 98.4 66 20 120/62 96 Nasal Cannula 07/13 0148 97.9 58 20 160/80 97 Nasal 2.0L Cannula 07/13 0142 Nasal 2.0L Cannula 07/13 0125 96.4 56 20 165/75 97 Nasal 2.0L Cannula 07/12 2302 97.1 61 16 146/73 97 Room Air 07/12 2016 81 16 133/85 97 Room Air 07/12 2008 164 162/82 07/12 2000 168 07/12 1954 181 07/12 1946 182 07/12 1945 181 07/12 1944 97.8 182 20 143/84 99 Room Air 07/12 194 177 Intake & Output 07/13 1600 07/13 0800 07/13 0000 Intake Total 200 Output Total 400 Balance -400 200 Intake, IV 200 Output, Urine 400 Patient 142 lb Weight Chest x-ray was within normal limits without any acute process Assessment * Supraventricular tachycardia with RBBB * Sickle cell disease with microcytic anemia * Leukocytosis and thrombocytosis * Isolated T3 hypothyroidism picture(could be related to acute illness) * Chronically elevated WBC count * Chronic anemia * Chronic hyperbilirubinemia Plan * Plan was discussed with Dr. Tristan * Convert patient to full admission * Patient will need electrophysiology consult on Saturday * Continue telemetry monitoring * Recheck CBC tomorrow * Please ask patient or his family to bring his bottles of supplements; please review these with the pharmacy to determine whether any of these supplements may be causing his symptoms or liver enzyme abnormalities. N acetylcysteine is not reported to cause elevated bilirubin; similarly phosphatidylserine has no association with elevated bilirubin or cardiac arrhythmia. * Recheck LFTs tomorrow
[2017-07-13 15:02] VITALS: BP 130/66
[2017-07-13 23:12] VITALS: BP 118/76
[2017-07-14 07:13] VITALS: BP 122/60
[2017-07-14 08:49] LABS: ABSOLUTE BASOPHIL COUNT 0.1 /CUMM (0.0-0.2); ABSOLUTE EOSINOPHIL COUNT 0.7 /CUMM (0.0-0.7); ABSOLUTE GRANULOCYTE CT 13.3 /CUMM (1.4-6.5); ABSOLUTE LYMPH COUNT 1.9 /CUMM (1.2-3.4); ABSOLUTE MONOCYTE COUNT 2.1 /CUMM (0.10-0.60); BASOPHIL % 0.5 % (0.0-2.0); EOSINOPHIL % 3.9 % (0-5); GRANULOCYTE % 73.5 % (42.2-75.2); MEAN CORPUSCULAR HGB 34.1 PG (27.0-31.0); MEAN CORPUSCULAR VOLUME 100.3 FL (80.0-94.0); MEAN PLATELET VOLUME 8.5 FL (7.4-10.4); PLATELET COUNT 498 /CUMM (130-400); RBC DISTRIBUTION WIDTH 24.7 % (11.5-14.5); RED BLOOD CELL CT 1.58 /CUMM (4.70-6.10); WHITE BLOOD CELL COUNT 18.1 /CUMM (4.8-10.8)
[2017-07-14 09:11] LABS: HEMATOCRIT 15.8 % (42-52)
--- NOTE | 2017-07-14 09:39 | PN- Housestaff ---
Subjective Follow-up For: Sickle cell disease Supraventricular tachycardia Elevated TSH Elevated bilirubin Tele-Events Since Last Visit: NSR/first-degree heart block PAC 6 beat V. tach HR 6183 CT 0.24 Subjective: No acute events overnight. Denies any chest pain, palpitations, dizziness, weakness. Review of Systems Constitutional: Reports: see HPI. Objective Last 24 Hrs of Vital Signs/I&O Vital Signs Date Time Temp Pulse Resp B/P B/P Pulse O2 O2 Flow FiO2 Mean Ox Delivery Rate 07/14 1506 98.7 84 18 140/70 94 Nasal 2.0L Cannula 07/14 0800 Nasal 2.0L Cannula 07/14 0713 99.0 68 20 122/60 97 Nasal 2.0L Cannula 07/14 0000 94 Nasal 2.0L Cannula 07/13 2312 98.1 70 15 118/76 92 Intake & Output 07/14 1600 07/14 0800 07/14 0000 Intake Total 830 700 950 Output Total 1550 1075 Balance 830 -850 -125 Intake, IV 350 400 310 Intake, Oral 480 300 640 Output, Urine 1550 1075 Physical Exam General Appearance: Alert, Oriented X3, Cooperative HEENT: [place] KEE amblyopia Cardiovascular: Regular Rate, Normal S1, Normal S2 Lungs: Clear to Auscultation, Normal Air Movement Abdomen: Normal Bowel Sounds, Soft, No Tenderness Extremities: 2+ radial pulses Vascular: no LE edema Current Medications: Current Medications Sig/[place] Start time Last Medication Dose Route Stop Time Status Admin Sodium Chloride 1,000 ML Q20H 07/13 1715 DC 07/13 IV 07/14 1314 1721 Last 24 Hrs of Lab/Juan Pablo Results Last 24 Hrs of Labs/Mics: Laboratory Tests 07/14/17 1038: Sodium Cancelled, Potassium Cancelled, Chloride Cancelled, Carbon Dioxide Cancelled, Anion Gap Cancelled, BUN Cancelled, Creatinine Cancelled, BUN/ Creatinine Ratio Cancelled 07/14/17 0643: Anion Gap 9, Estimated GFR > 60, BUN/Creatinine Ratio 17.0, Magnesium 1.9, Total Bilirubin 3.6 H, Direct Bilirubin 0.9 H, AST 50, ALT 52, Alkaline Phosphatase 60, Total Protein 6.5, Albumin 3.3 L, CBC w Diff MAN DIFF ORDERED, RBC 1.58 L, MCV 100.3 H, MCH 34.1 H, MCHC 34.0, RDW 24.7 H, MPV 8.5, Gran % 73.5, Lymphocytes % 10.3 L, Monocytes % 11.8 H, Eosinophils % 3.9, Basophils % 0.5, Absolute Granulocytes 13.3 H, Segmented Neutrophils 73, Band Neutrophils 3, Absolute Lymphocytes 1.9, Lymphocytes 11 L, Monocytes 7, Absolute Monocytes 2.1 H, Eosinophils 3, Absolute Eosinophils 0.7, Basophils 3 H, Absolute Basophils 0.1, Nucleated RBCs 1 H, Platelet Estimate INCREASED, Polychromasia 2+, Poikilocytosis 4+, Anisocytosis 4+, Macrocytic Cells 2+, Ovalocytes 3+, Elliptocytes 2+ Assessment/Plan Assessment: 41-year-old male with past medical history of sickle cell disease who presented because of palpitation. He was found to have supraventricular tachycardia with RBBB. The patient H&H was found to be 6.7 & 18.8. The patient refused blood transfusion. Currently he is in normal sinus rhythm and denies any active complaints. Patient admitted from obs for further monitoring of his cbc and sickle cell anemia Problem list * Supraventricular tachycardia with RBBB * Sickle cell disease with microcytic anemia * Elevated bilirubin mainly in direct mostly secondary to hemolytic anemia * Leukocytosis and thrombocytosis may be reactive * Isolated T3 hypothyroidism picture(could be related to acute illness) Plan * trops and ekg ruled out acs * Pending Echocardiogram * The patient is strongly refusing blood transfusion. Has agreed for type and screen. Allowed for blood transfusion if in critical condition and unable to give consent * TSH elevated @ 5.510 * H/H droppin.7 -> 5.4. Patient asymptomatic states it can drop to <4. obtain iron studies, folic acid * T bili 6.5->3.6. cont to monitor * Consult with leoncio/Fernando for electrophysiologic consult * encouraged to continue po hydration * ask patient or his family to bring his bottles of supplements; please review these with the pharmacy to determine whether any of these supplements may be causing his symptoms or liver enzyme abnormalities * Regular diet * DVT prophylaxis with Alps, we will avoid pharmacological given severe anemia. Problem List: 1. Sickle cell disease 2. RBBB 3. SVT (supraventricular tachycardia) 4. Elevated bilirubin Pain Ratin Pain Location: none Pain Goal: Pain 4 or less Pain Plan: pain pathway Tomorrow's Labs & Rationales: cbc lft iron studies folic acid
--- NOTE | 2017-07-14 12:02 | PN- Cardiology ---
Subjective Subjective: Patient reports feeling well, no further episodes of palpitations. Telemetry tracings however reveal a run of 6 complexes, monomorphic, which appears supraventricular in origin, occurring around 4:30 in the dinkey operator slate of July 14. Upon further questioning the patient reports having had multiple episodes of palpitations which were similar to the ones sustained on July 12, of shorter duration however. Patient usually can put an end to the palpitations by holding his breath. Objective Vital Signs and I&Os Vital Signs Date Time Temp Pulse Resp B/P B/P Pulse O2 O2 Flow FiO2 Mean Ox Delivery Rate 07/14 08 Nasal 2.0L Cannula 07/14 0713 99.0 68 20 122/60 97 Nasal 2.0L Cannula 07/14 0000 94 Nasal 2.0L Cannula 07/13 2312 98.1 70 15 118/76 92 07/13 1502 98.0 69 20 130/66 97 Nasal 2.0L Cannula Intake & Output 07/14 1600 07/14 0800 07/14 0000 07/13 1600 07/13 0800 07/13 0000 Intake Total 114 545 5585 200 Output Total 1550 1075 1000 Balance -850 -125 200 200 Intake, IV 400 310 200 Intake, Oral 728 004 6789 Output, Urine 1550 1075 1000 Patient 142 lb Weight Physical Exam: Patient is alert oriented comfortable. HEENT exam is grossly normal. Conjunctival jaundice. Neck is supple trachea midline. No jugular venous distention Pulmonary: Good lung expansion bilaterally, lungs are clear. Cardiac: S1 and S2 are present and of normal intensity, 3/6 systolic ejection murmur is best heard at the left sternal border, with normal carotid upstroke. GI: Bowel sounds are present and normal, there is no distention there is no pain on palpation Lower extremities do not present any edema, capillary refill is normal. Current Medications: Current Medications Sig/[place] Start time Last Medication Dose Route Stop Time Status Admin Sodium Chloride 1,000 ML Q20H 07/13 1715 AC 07/13 IV 07/14 1314 1721 Results Last 48 Hrs of Labs/Mics: Laboratory Tests 07/14/17 0643: Anion Gap 9, Estimated GFR > 60, BUN/Creatinine Ratio 17.0, Magnesium 1.9, Total Bilirubin 3.6 H, Direct Bilirubin 0.9 H, AST 50, ALT 52, Alkaline Phosphatase 60, Total Protein 6.5, Albumin 3.3 L, CBC w Diff MAN DIFF ORDERED, RBC 1.58 L, MCV 100.3 H, MCH 34.1 H, MCHC 34.0, RDW 24.7 H, MPV 8.5, Gran % 73.5, Lymphocytes % 10.3 L, Monocytes % 11.8 H, Eosinophils % 3.9, Basophils % 0.5, Absolute Granulocytes 13.3 H, Segmented Neutrophils 73, Band Neutrophils 3, Absolute Lymphocytes 1.9, Lymphocytes 11 L, Monocytes 7, Absolute Monocytes 2.1 H, Eosinophils 3, Absolute Eosinophils 0.7, Basophils 3 H, Absolute Basophils 0.1, Nucleated RBCs 1 H, Platelet Estimate INCREASED, Polychromasia 2+, Poikilocytosis 4+, Anisocytosis 4+, Macrocytic Cells 2+, Ovalocytes 3+, Elliptocytes 2+ 07/13/17 1300: Troponin I 0.04 07/13/17 1205: Urine Opiates Screen < 100, Methadone Screen < 40, Barbiturate Screen < 60, Ur Phencyclidine Scrn < 6.00, Amphetamines Screen < 100, U Benzodiazepines Scrn < 85, Urine Cocaine Screen < 50, Urine Cannabis Screen < 5.00, Urinalysis LIGHT H , Urine Color YEL, Urine Clarity CLEAR, Urine pH 6.0, Ur Specific [place] 1.010, Urine Protein TRACE H, Urine Ketones NEG, Urine Nitrite NEG, Urine Bilirubin NEG, Urine Urobilinogen 1.0, Ur Leukocyte Esterase NEG, Ur Microscopic SEDIMENT EXAMINED, Urine RBC 1-3, Urine WBC RARE, Urine Mucus FEW, Urine Hemoglobin TRACE -INTACT H, Urine Glucose NEG 07/13/17 0714: Troponin I 0.06 07/12/17 1946: Anion Gap 18 H, Estimated GFR > 60, BUN/Creatinine Ratio 15.8, Glucose 128 H, Calcium 9.0, Magnesium 1.6, Total Bilirubin 6.5 H, Direct Bilirubin 2.5 H, AST 65 H, ALT 48, Alkaline Phosphatase 89, Troponin I < 0.01, Total Protein 8.7 H, Albumin 4.7, Globulin 4.0, Albumin/Globulin Ratio 1.2, Free T4 1.43, Total T3 0.91 L, TSH &T3 &Free T4 Intrp 5.510 H, CBC w Diff MAN DIFF ORDERED, RBC 1.94 L, MCV 96.8 H, MCH 34.3 H, MCHC 35.5, RDW 28.3 H, MPV 7.6, Gran % 72.5, Lymphocytes % 17.5 L, Monocytes % 8.1, Eosinophils % 1.5, Basophils % 0.4, Absolute Granulocytes 16.7 H, Segmented Neutrophils 81 H, Band Neutrophils 1, Absolute Lymphocytes 4.0 H, Lymphocytes 14 L, Monocytes 4, Absolute Monocytes 1.9 H, Absolute Eosinophils 0.4, Absolute Basophils 0.1, Platelet Estimate VERIFIED BY SMEAR, Polychromasia 1+, Poikilocytosis 2+, Anisocytosis 2+, Macrocytic Cells 1+, Fld Total RBCs Counted 100 Assessment/Plan Assessment/Plan 41-year-old man with a long episode of wide-complex tachycardia with difficulty converting medically with adenosine and Cardizem. History of past palpitations is most consistent with supraventricular tachycardia, however his tracings cannot exclude a ventricular origin. No gross cardiomyopathy was detected on echocardiogram, no valvular pathology was detected. Patient's tracings will be discussed with Dr. King from EP tomorrow and further course of treatment will be decided then. The patient agrees with this plan. Continue telemetry? Yes
--- NOTE | 2017-07-14 12:23 | PN- Att Addend ---
Attending Addendum Attending Brief Note Patient seen and examined. Plan of care discussed with the medical team and the patient. Available lab work and radiology test reports were reviewed. gambling monitor shows normal sinus rhythm with a 6 beat run of monomorphic nonsustained arrhythmia most likely SVT. Patient has no new symptoms of palpitations. Denies any chest pain. He denies any nausea vomiting fever chills chest pains. Exam: General: Patient awake alert oriented without any distress CVS: S1 plus S2 without any murmur or gallops Chest: Few scattered crepitation without any wheeze. There is no respiratory distress. Abdomen: Soft non-tender, bowel sound present, no guarding or rebound WELT STITCHER: Awake alert oriented without any focal neuro deficit and follows commands appropriately Extremities: No edema; no clubbing or cyanosis noted Assessment * Supraventricular tachycardia with RBBB * Sickle cell disease with microcytic anemia * Leukocytosis and thrombocytosis * Isolated T3 hypothyroidism picture(could be related to acute illness) * Chronically elevated WBC count * Chronic anemia with further reduction in hemoglobin * Chronic hyperbilirubinemia of unclear etiology Plan * Patient will need electrophysiology consult on Saturday * Continue telemetry monitoring * Recheck CBC tomorrow * Recheck LFTs tomorrow * Patient adamant that he does not need a transfusion and would only accept transfusion in dire emergencies * Please check iron studies * Check RBC folic acid Current Medications Sig/[place] Start time Last Medication Dose Route Stop Time Status Admin Sodium Chloride 1,000 ML Q20H 07/13 1715 AC 07/13 IV 07/14 1314 1721 Laboratory Tests 07/14/17 0643: Anion Gap 9, Estimated GFR > 60, BUN/Creatinine Ratio 17.0, Magnesium 1.9, Total Bilirubin 3.6 H, Direct Bilirubin 0.9 H, AST 50, ALT 52, Alkaline Phosphatase 60, Total Protein 6.5, Albumin 3.3 L, CBC w Diff MAN DIFF ORDERED, RBC 1.58 L, MCV 100.3 H, MCH 34.1 H, MCHC 34.0, RDW 24.7 H, MPV 8.5, Gran % 73.5, Lymphocytes % 10.3 L, Monocytes % 11.8 H, Eosinophils % 3.9, Basophils % 0.5, Absolute Granulocytes 13.3 H, Segmented Neutrophils 73, Band Neutrophils 3, Absolute Lymphocytes 1.9, Lymphocytes 11 L, Monocytes 7, Absolute Monocytes 2.1 H, Eosinophils 3, Absolute Eosinophils 0.7, Basophils 3 H, Absolute Basophils 0.1, Nucleated RBCs 1 H, Platelet Estimate INCREASED, Polychromasia 2+, Poikilocytosis 4+, Anisocytosis 4+, Macrocytic Cells 2+, Ovalocytes 3+, Elliptocytes 2+ 07/13/17 1300: Troponin I 0.04 07/13/17 1205: Urine Opiates Screen < 100, Methadone Screen < 40, Barbiturate Screen < 60, Ur Phencyclidine Scrn < 6.00, Amphetamines Screen < 100, U Benzodiazepines Scrn < 85, Urine Cocaine Screen < 50, Urine Cannabis Screen < 5.00, Urinalysis LIGHT H , Urine Color YEL, Urine Clarity CLEAR, Urine pH 6.0, Ur Specific [place] 1.010, Urine Protein TRACE H, Urine Ketones NEG, Urine Nitrite NEG, Urine Bilirubin NEG, Urine Urobilinogen 1.0, Ur Leukocyte Esterase NEG, Ur Microscopic SEDIMENT EXAMINED, Urine RBC 1-3, Urine WBC RARE, Urine Mucus FEW, Urine Hemoglobin TRACE -INTACT H, Urine Glucose NEG 07/13/17 0714: Troponin I 0.06 07/12/17 1946: Anion Gap 18 H, Estimated GFR > 60, BUN/Creatinine Ratio 15.8, Glucose 128 H, Calcium 9.0, Magnesium 1.6, Total Bilirubin 6.5 H, Direct Bilirubin 2.5 H, AST 65 H, ALT 48, Alkaline Phosphatase 89, Troponin I < 0.01, Total Protein 8.7 H, Albumin 4.7, Globulin 4.0, Albumin/Globulin Ratio 1.2, Free T4 1.43, Total T3 0.91 L, TSH &T3 &Free T4 Intrp 5.510 H, CBC w Diff MAN DIFF ORDERED, RBC 1.94 L, MCV 96.8 H, MCH 34.3 H, MCHC 35.5, RDW 28.3 H, MPV 7.6, Gran % 72.5, Lymphocytes % 17.5 L, Monocytes % 8.1, Eosinophils % 1.5, Basophils % 0.4, Absolute Granulocytes 16.7 H, Segmented Neutrophils 81 H, Band Neutrophils 1, Absolute Lymphocytes 4.0 H, Lymphocytes 14 L, Monocytes 4, Absolute Monocytes 1.9 H, Absolute Eosinophils 0.4, Absolute Basophils 0.1, Platelet Estimate VERIFIED BY SMEAR, Polychromasia 1+, Poikilocytosis 2+, Anisocytosis 2+, Macrocytic Cells 1+, Fld Total RBCs Counted 100 Vital Signs Date Time Temp Pulse Resp B/P B/P Pulse O2 O2 Flow FiO2 Mean Ox Delivery Rate 07/14 08 Nasal 2.0L Cannula 07/14 0713 99.0 68 20 122/60 97 Nasal 2.0L Cannula 07/14 0000 94 Nasal 2.0L Cannula 07/13 2312 98.1 70 15 118/76 92 07/13 1502 98.0 69 20 130/66 97 Nasal 2.0L Cannula Intake & Output 07/14 1600 07/14 0800 07/14 0000 Intake Total 700 950 Output Total 1550 1075 Balance -850 -125 Intake, IV 400 310 Intake, Oral 300 640 Output, Urine 1550 1075
[2017-07-14 15:06] VITALS: BP 140/70
[2017-07-14 22:31] VITALS: BP 128/62
[2017-07-15 06:00] VITALS: BP 138/82
--- NOTE | 2017-07-15 07:37 | PN- Housestaff ---
Subjective Follow-up For: svt Tele-Events Since Last Visit: NSR Subjective: Pt feels well. No new complaints. Pt was in NSR overnight, w/ no new events. No SOB, palpitations, and dyspnea. Vitals remained stable overnight. As per the conversation w/ the funeral assistant, he needs to be transfered to [facility] for further work up. There was a possibility of ventricular tachycardia, which needs to be followed up. He doenst have any h/o cardiomyopathy from the past. Explained the risks and benefits to the pt. He agrees to the plan. Review of Systems Constitutional: Reports: see HPI. Objective Last 24 Hrs of Vital Signs/I&O Vital Signs Date Time Temp Pulse Resp B/P B/P Pulse O2 O2 Flow FiO2 Mean Ox Delivery Rate 07/14 2231 98.0 72 18 128/62 96 07/14 1506 98.7 84 18 140/70 94 Nasal 2.0L Cannula 07/14 0800 Nasal 2.0L Cannula Intake & Output 07/15 0800 07/15 0000 07/14 1600 Intake Total 600 840 830 Output Total 1450 1650 Balance -850 -810 830 Intake, IV 350 Intake, Oral 600 840 480 Output, Urine 1450 1650 Physical Exam General Appearance: No Acute Distress Skin: No Rashes, No Breakdown, No Significant Lesion, pale Skin Temp/Moisture Exam: Warm/Dry Sepsis Skin Exam (color): Pale HEENT: Atraumatic, PERRLA, EOMI Neck: Supple, No JVD, No thryomegaly Lymphatic: Axillary nl, Cervical nl Cardiovascular: Regular Rate, Normal S1, Normal S2, No Murmurs Lungs: Clear to Auscultation, Normal Air Movement Abdomen: Soft, No Tenderness, No Hepatospenomegaly Neurological: Normal Speech, Strength at 5/5 X4 Ext, Normal Tone Other Physical Findings: General Appearance: Alert, Oriented X3, Cooperative HEENT: PERRLA, L amblyopia Cardiovascular: Regular Rate, Normal S1, Normal S2 Lungs: Clear to Auscultation, Normal Air Movement Abdomen: Normal Bowel Sounds, Soft, No Tenderness Extremities: 2+ radial pulses Vascular: no LE edema Current Medications: Current Medications Sig/[place] Start time Last Medication Dose Route Stop Time Status Admin Sodium Chloride 1,000 ML Q20H 07/13 1715 DC 07/13 IV 07/14 1314 1721 Last 24 Hrs of Lab/[place] Results Last 24 Hrs of Labs/Mics: Laboratory Tests 07/15/17 0630: Iron Pending, TIBC Pending, Ferritin Pending, Total Bilirubin Pending, Direct Bilirubin Pending, AST Pending, ALT Pending, Alkaline Phosphatase Pending, Total Protein Pending, Albumin Pending, Folate Pending, CBC w Diff Pending, WBC Pending, RBC Pending, Hgb Pending, Hct Pending, MCV Pending, MCH Pending, MCHC Pending, RDW Pending, Plt Count Pending, MPV Pending 07/14/17 1038: Sodium Cancelled, Potassium Cancelled, Chloride Cancelled, Carbon Dioxide Cancelled, Anion Gap Cancelled, BUN Cancelled, Creatinine Cancelled, BUN/ Creatinine Ratio Cancelled Assessment/Plan Assessment: 41-year-old male with past medical history of sickle cell disease who presented because of palpitation. He was found to have supraventricular tachycardia with RBBB. The patient H&H was found to be 6.7 & 18.8. The patient refused blood transfusion. Currently he is in normal sinus rhythm and denies any active complaints. Problem list: * Supraventricular tachycardia with RBBB e/o ventricular tachycardia * Sickle cell disease with microcytic anemia * Elevated bilirubin mainly in direct mostly secondary to hemolytic anemia * Leukocytosis and thrombocytosis may be reactive * Isolated T3 hypothyroidism picture(could be related to acute illness) Plan * Echocardiogram revealed trabeculations. No e/o cardiomyopathy. This needs to be investigated further for work up of VTs. * The patient is strongly refusing blood transfusion. Explained to him risks. Hb stable 5.3, and he would like transfusion if symptomatic. * TSH elevated @ 5.510 * H/H droppin.7 -> 5.4--> 5.3 ( stable in the last 24 hrs) * Patient asymptomatic states it can drop to <4. obtain iron studies, folic acid * T bili 6.5->3.6-->4.5 cont to monitor * Consult with leoncio/Fernando for electrophysiologic consult * encouraged to continue po hydration * Avoid supplements. * Regular diet * DVT prophylaxis with Alps, we will avoid pharmacological given severe anemia. * Obtained permission from the pt to review records from [facility] EMR. Problem List: 1. Elevated bilirubin 2. RBBB 3. SVT (supraventricular tachycardia) Pain Ratin Pain Location: back Pain Goal: Pain 4 or less Pain Plan: tylenol Tomorrow's Labs & Rationales: cbc bep
[2017-07-15 08:26] LABS: ABSOLUTE BASOPHIL COUNT 0 /CUMM (0.0-0.2); ABSOLUTE EOSINOPHIL COUNT 0.7 /CUMM (0.0-0.7); ABSOLUTE GRANULOCYTE CT 16.7 /CUMM (1.4-6.5); ABSOLUTE LYMPH COUNT 1.9 /CUMM (1.2-3.4); ABSOLUTE MONOCYTE COUNT 2.9 /CUMM (0.10-0.60); BASOPHIL % 0.2 % (0.0-2.0); MEAN CORPUSCULAR HGB 34.4 PG (27.0-31.0); MEAN CORPUSCULAR HGB CONC 34.7 G/DL (33.0-37.0); MEAN CORPUSCULAR VOLUME 99.2 FL (80.0-94.0); MEAN PLATELET VOLUME 7.9 FL (7.4-10.4); PLATELET COUNT 474 /CUMM (130-400); RBC DISTRIBUTION WIDTH 26.1 % (11.5-14.5); RED BLOOD CELL CT 1.53 /CUMM (4.70-6.10); WHITE BLOOD CELL COUNT 22.3 /CUMM (4.8-10.8)
[2017-07-15 08:29] LABS: HEMATOCRIT 15.2 % (42-52)
[2017-07-15] MEDS ORDERED: DAILY VALUE1 EACH PO (09:49)
--- NOTE | 2017-07-15 09:52 | Discharge Summary ---
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 While he was in training, performing chest compressions and he felt that he had palpitations, and found to have heart rate in the 180s. EMS found that he was in SVT (regular tachycardia with wide QRS with suspicion for ventricular tachycardia), and was given adenosine and Cardizem without any effect. When he got to the emergency room at , he was given another round of adenosine and Cardizem; amiodarone and metoprolol after which he converted to normal sinus rhythm and did not have any shortness of breath, chest pain at that time. Reported several episodes a 4 years ago after which a thorough workup was done which was negative including a Holter monitor. He also had a short episode approximately one month ago. He did not have any recent painful crisis from sickle cell disease, and the last episode was in 2016. He follows up with his knife setter grinder machine Dr. Aaron Gillis at the [facility]. Also reported taking some naturopathic medicines, which were discontinued in the ER. No history of CAD or Cardiomyopathy. No precipitating factors were identified, TSH was slightly elevated, initially glycol within normal limits and there was no history of consumption of any stimulants. No family history of sudden cardiac or cardiomyopathy noted. At the time of admission, vitals-temperature 97.8, pulse rate 182--> 81, blood pressure 143/84, respiration 20, pulse ox 99% on room air. Pertinent lab findings: WBC 23.0 (likely reactive) cyst, hemoglobin 6.7, hematocrit 18.8, MCV 96.8, platelets 616 (likely reactive), sodium 141, potassium 4.1, bicarbonate 15, anion gap 18, BUN 19, serum creatinine 1.2. Repeat labs revealed sodium 142, potassium 5.0, bicarbonate 20, anion gap 9.Total bilirubin 6.5--> 4.5, direct bilirubin 2.5-->1.3, AST 65, AST 48, alkaline phosphatase 89. Urine toxicology screen was negative for opiates, cocaine, barbiturates. Urinalysis was positive for hemoglobin, otherwise clear. Chest x-ray did not have any evidence of opacification or effusion. Cardiac enzymes-troponin I: 0.01, 0.06, 0.04. He was admitted to telemetry for floor for the management of tachycardia SVT with wide QRS which was suspicious for ventricular tachycardia. He did not require any additional beta yonatan or Cardizem dose. He did not have any symptoms while he was admitted to the floor. Telemetry tracing reported an episode of 6 complexes likely monomorphic which appear to be SVT, while he reported an episode of palpitations around that time. An echocardiogram was done, pending final reading from the forest fire prevention specialist. As per the forest fire prevention specialist, she seems to think that she has trabeculations in noted, which was a verbal communication. Echocardiogram revealed normal left ventricular size and systolic function with no obvious regional wall motion abnormalities. Left ventricular ejection fraction 55%. 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 Right ventricle is normal in size and function. Plan was to follow-up with Dr. King, for further management. In regards to his sickle cell anemia, he did not have any symptoms. Upon following up on laboratory results, he was found to be anemic with hemoglobin 6.7--> 5.4--> 5.3. The patient did not wish to receive any blood transfusion or any iron supplementation. He wanted to follow up with his knife setter grinder machine at [place], and plan to get blood work done in the next 1 week. He was recommended to discontinue all the supplements, pending evaluation by the forest fire prevention specialist. Allergies: Coded Allergies: meperidine (From DEMEROL) (Intermediate, NAUSEA 01/01/16) Sulfa (Sulfonamide Antibiotics) (UNKNOWN 07/12/17) Pertinent Lab Results: Chest x ray: No acute finding here. Chronic change in the right upper lung zone. No obvious failure or infiltrate. No effusion. IMPRESSION: No convincing evidence for an acute process portable chest. - Laboratory Tests 07/15 07/14 0630 1038 Chemistry Sodium Cancelled Potassium Cancelled Chloride Cancelled Carbon Dioxide Cancelled Anion Gap Cancelled BUN Cancelled Creatinine Cancelled BUN/Creatinine Ratio Cancelled Iron (49 - 181 ug/dL) 45 L TIBC (261 - 462 ug/dL) 206 L Ferritin (17.9 - 464 ng/mL) 243.0 Total Bilirubin (0.2 - 1.3 mg/dL) 4.5 H Direct Bilirubin (< 0.4 mg/dL) 1.3 H AST (17 - 59 U/L) 44 ALT (21 - 72 U/L) 46 Alkaline Phosphatase (< 127 U/L) 65 Total Protein (6.3 - 8.2 g/dL) 6.6 Albumin (3.5 - 5.0 g/dL) 3.4 L Folate (2.76 - 20.0 ng/mL) 6.2 Hematology CBC w Diff NO MAN DIFF REQ WBC (4.8 - 10.8 /CUMM) 22.3 H RBC (4.70 - 6.10 /CUMM) 1.53 L Hgb (14.0 - 18.0 G/DL) 5.3 *L Hct (42 - 52 %) 15.2 *L MCV (80.0 - 94.0 FL) 99.2 H MCH (27.0 - 31.0 PG) 34.4 H MCHC (33.0 - 37.0 G/DL) 34.7 RDW (11.5 - 14.5 %) 26.1 H Plt Count (130 - 400 /CUMM) 474 H MPV (7.4 - 10.4 FL) 7.9 Gran % (42.2 - 75.2 %) 75.0 Lymphocytes % (20.5 - 51.1 %) 8.7 L Monocytes % (1.7 - 9.3 %) 13.1 H Eosinophils % (0 - 5 %) 3.0 Basophils % (0.0 - 2.0 %) 0.2 Absolute Granulocytes (1.4 - 6.5 /CUMM) 16.7 H Absolute Lymphocytes (1.2 - 3.4 /CUMM) 1.9 Absolute Monocytes (0.10 - 0.60 /CUMM) 2.9 H Absolute Eosinophils (0.0 - 0.7 /CUMM) 0.7 Absolute Basophils (0.0 - 0.2 /CUMM) 0 07/14 07/13 0643 1300 Chemistry Sodium (137 - 145 mmol/L) 142 Potassium (3.5 - 5.1 mmol/L) 5.0 Chloride (98 - 107 mmol/L) 114 H Carbon Dioxide (22 - 30 mmol/L) 20 L Anion Gap (5 - 16) 9 BUN (9 - 20 mg/dL) 17 Creatinine (0.7 - 1.2 mg/dL) 1.0 Estimated GFR (>60 ml/min) > 60 BUN/Creatinine Ratio (7 - 25 %) 17.0 Magnesium (1.6 - 2.3 mg/dL) 1.9 Total Bilirubin (0.2 - 1.3 mg/dL) 3.6 H Direct Bilirubin (< 0.4 mg/dL) 0.9 H AST (17 - 59 U/L) 50 ALT (21 - 72 U/L) 52 Alkaline Phosphatase (< 127 U/L) 60 Troponin I (<0.11 ng/ml) 0.04 Total Protein (6.3 - 8.2 g/dL) 6.5 Albumin (3.5 - 5.0 g/dL) 3.3 L Hematology CBC w Diff MAN DIFF ORDERED WBC (4.8 - 10.8 /CUMM) 18.1 H RBC (4.70 - 6.10 /CUMM) 1.58 L Hgb (14.0 - 18.0 G/DL) 5.4 *L Hct (42 - 52 %) 15.8 *L MCV (80.0 - 94.0 FL) 100.3 H MCH (27.0 - 31.0 PG) 34.1 H MCHC (33.0 - 37.0 G/DL) 34.0 RDW (11.5 - 14.5 %) 24.7 H Plt Count (130 - 400 /CUMM) 498 H MPV (7.4 - 10.4 FL) 8.5 Gran % (42.2 - 75.2 %) 73.5 Lymphocytes % (20.5 - 51.1 %) 10.3 L Monocytes % (1.7 - 9.3 %) 11.8 H Eosinophils % (0 - 5 %) 3.9 Basophils % (0.0 - 2.0 %) 0.5 Absolute Granulocytes (1.4 - 6.5 /CUMM) 13.3 H Segmented Neutrophils (42.2 - 75.2 %) 73 Band Neutrophils (0.0 - 5.0 %) 3 Absolute Lymphocytes (1.2 - 3.4 /CUMM) 1.9 Lymphocytes (20.5 - 51.1 %) 11 L Monocytes (1.7 - 9.3 %) 7 Absolute Monocytes (0.10 - 0.60 /CUMM) 2.1 H Eosinophils (0 - 5.0 %) 3 Absolute Eosinophils (0.0 - 0.7 /CUMM) 0.7 Basophils (0.0 - 2.0 %) 3 H Absolute Basophils (0.0 - 0.2 /CUMM) 0.1 Nucleated RBCs (0.0 - 0.0 /100WBC) 1 H Platelet Estimate (ADEQUATE) INCREASED Polychromasia 2+ Poikilocytosis 4+ Anisocytosis 4+ Macrocytic Cells 2+ Ovalocytes 3+ Elliptocytes 2+ 07/13 07/13 1205 0714 Chemistry Troponin I (<0.11 ng/ml) 0.06 Toxicology Urine Opiates Screen (>2000 NG/ML) < 100 Methadone Screen (>300 NG/ML) < 40 Barbiturate Screen (>200 NG/ML) < 60 Ur Phencyclidine Scrn (>25 NG/ML) < 6.00 Amphetamines Screen (>1000 NG/ML) < 100 U Benzodiazepines Scrn (>200 NG/ML) < 85 Urine Cocaine Screen (>300 NG/ML) < 50 Urine Cannabis Screen (>50 NG/ML) < 5.00 Urines Urinalysis LIGHT H Urine Color (YEL,AMB,STR) YEL Urine Clarity (CLEAR) CLEAR Urine pH (5.0 - 8.0) 6.0 Ur Specific [place] (1.001 - 1.035) 1.010 Urine Protein (NEG,<30 MG/DL) TRACE H Urine Ketones (NEG) NEG Urine Nitrite (NEG) NEG Urine Bilirubin (NEG) NEG Urine Urobilinogen (0.1 - 1.0 EU/dl) 1.0 Ur Leukocyte Esterase (NEG) NEG Ur Microscopic SEDIMENT EXAMINED Urine RBC (0 - 5 /HPF) 1-3 Urine WBC (0 - 2 /HPF) RARE Urine Mucus (FEW,NONE) FEW Urine Hemoglobin (NEG) TRACE-INTACT H Urine Glucose (N MG/DL) NEG 07/12 1945 Chemistry Sodium (137 - 145 mmol/L) 141 Potassium (3.5 - 5.1 mmol/L) 4.1 Chloride (98 - 107 mmol/L) 108 H Carbon Dioxide (22 - 30 mmol/L) 15 L Anion Gap (5 - 16) 18 H BUN (9 - 20 mg/dL) 19 Creatinine (0.7 - 1.2 mg/dL) 1.2 Estimated GFR (>60 ml/min) > 60 BUN/Creatinine Ratio (7 - 25 %) 15.8 Glucose (65 - 99 mg/dL) 128 H Calcium (8.4 - 10.2 mg/dL) 9.0 Magnesium (1.6 - 2.3 mg/dL) 1.6 Total Bilirubin (0.2 - 1.3 mg/dL) 6.5 H Direct Bilirubin (< 0.4 mg/dL) 2.5 H AST (17 - 59 U/L) 65 H ALT (21 - 72 U/L) 48 Alkaline Phosphatase (< 127 U/L) 89 Troponin I (<0.11 ng/ml) < 0.01 Total Protein (6.3 - 8.2 g/dL) 8.7 H Albumin (3.5 - 5.0 g/dL) 4.7 Globulin (1.9 - 4.2 gm/dL) 4.0 Albumin/Globulin Ratio (1.1 - 2.2 %) 1.2 Free T4 (0.64 - 1.79 ng/dL) 1.43 Total T3 (0.97 - 1.69 ng/mL) 0.91 L TSH &T3 &Free T4 Intrp (0.27 - 4.20 uIU/mL) 5.510 H Hematology CBC w Diff MAN DIFF ORDERED WBC (4.8 - 10.8 /CUMM) 23.0 H RBC (4.70 - 6.10 /CUMM) 1.94 L Hgb (14.0 - 18.0 G/DL) 6.7 *L Hct (42 - 52 %) 18.8 *L MCV (80.0 - 94.0 FL) 96.8 H MCH (27.0 - 31.0 PG) 34.3 H MCHC (33.0 - 37.0 G/DL) 35.5 RDW (11.5 - 14.5 %) 28.3 H Plt Count (130 - 400 /CUMM) 616 H MPV (7.4 - 10.4 FL) 7.6 Gran % (42.2 - 75.2 %) 72.5 Lymphocytes % (20.5 - 51.1 %) 17.5 L Monocytes % (1.7 - 9.3 %) 8.1 Eosinophils % (0 - 5 %) 1.5 Basophils % (0.0 - 2.0 %) 0.4 Absolute Granulocytes (1.4 - 6.5 /CUMM) 16.7 H Segmented Neutrophils (42.2 - 75.2 %) 81 H Band Neutrophils (0.0 - 5.0 %) 1 Absolute Lymphocytes (1.2 - 3.4 /CUMM) 4.0 H Lymphocytes (20.5 - 51.1 %) 14 L Monocytes (1.7 - 9.3 %) 4 Absolute Monocytes (0.10 - 0.60 /CUMM) 1.9 H Absolute Eosinophils (0.0 - 0.7 /CUMM) 0.4 Absolute Basophils (0.0 - 0.2 /CUMM) 0.1 Platelet Estimate (ADEQUATE) VERIFIED BY SMEAR Polychromasia 1+ Poikilocytosis 2+ Anisocytosis 2+ Macrocytic Cells 1+ Other Body Source Fld Total RBCs Counted (%) 100 Disposition Summary Disposition Principal Diagnosis: SVT w/ wide complex Additional Diagnosis: Sickle cell Anemia Discharge Disposition: other general hospital Discharge Instructions General Discharge Information Code Status: Full Code Patient's Diet: heart heatlhy Patient's Activity: as tolerated Follow-Up Instructions/Appts: Please follow up with your PCP within one week of discharge Please follow up with your forest fire prevention specialist within one week of discharge Please follow up with your knife setter grinder machine within one week of discharge Medications at Discharge Discharge Medications: Stop taking the following medications: Acetylcysteine (NAC) (Unknown Strength) CAPSULE ORAL DAILY [PROTLYTIC ENZYME] ORAL TWICE DAILY Ferrous Gluconate (IRON) 256 MG (28 MG IRON) TABLET ORAL ONCE A MONTH Phosphatidyl Serine (Phosphatidylserine) (Unknown Strength) POWDER ORAL DAILY Continue taking these medications: Vitamin B Complex (Vitamin B Complex) 1 EACH CAPSULE 1 Capsule ORAL DAILY Comments: NOT GIVEN IN HOSPITAL Multivitamin (Daily Value) 1 EACH TABLET 1 Tablet ORAL DAILY Comments: NOT GIVEN IN HOSPITAL Copies To: Nick MARX,Nick Attending MD Review Statement Documenting Attending: Johnson MARX,Liliane
--- NOTE | 2017-07-15 09:54 | Patient Discharge Instructions ---
Discharge Instructions General Discharge Information You were seen/treated for: - Palpitations Watch for these problems: - chest pain, shortness of breath - palpitations - Increased lethargy, weakness -Jaundice, dark stools Special Instructions: -Please see your primary care provider within a week of discharge -Please see your printing press machine operator within a week of discharge -Please take your medications as prescribed. Acute Coronary Syndrome Inclusion Criteria At DC or during hospital stay patient has or had the following: ACS DIAGNOSIS No Discharge Core Measures Meds if any: Prescribed or Continued at Discharge Meds if any: NOT Prescribed or Continued at Discharge Congestive Heart Failure Inclusion Criteria At DC or during hospital stay patient has or had the following: CHF DIAGNOSIS No Discharge Core Measures Meds if any: Prescribed or Continued at Discharge Meds if any: NOT Prescribed or Continued at Discharge Cerebrovascular accident Inclusion Criteria At DC or during hospital stay patient has or had the following: CVA/TIA Diagnosis No Discharge Core Measures Meds if any: Prescribed or Continued at Discharge Meds if any: NOT Prescribed or Continued at Discharge Venous thromboembolism Inclusion Criteria VTE Diagnosis No VTE Type NONE VTE Confirmed by (Test) NONE Discharge Core Measures - Per Current guidelines, there needs to be overlap - treatment for the first 5 days of Warfarin therapy. - If discharged on Warfarin prior to 5 days of - overlap therapy, the patient will need to be - assessed for post discharge needs including - *Post discharge parental anticoagulation - *Warfarin and/or parental anticoagulation education - *Follow up date to check INR post discharge At least 5 days overlap therapy as Inpatient No Meds if any: Prescribed or Continued at Discharge Note: Overlap Therapy is Warfarin and Anticoagulant Meds if any: NOT Prescribed or Continued at Discharge
--- NOTE | 2017-07-15 12:47 | PN- Cardiology ---
Subjective Subjective: No recurrence of palpitations or tachyarhythmia on telemetry. Tracings discussed with Dr. Hill from electrophysiology, who who believes they are highly suspicious for ventricular tachycardia originating from the left ventricle. Patient's echocardiogram showed grossly normal left ventricular function, moderately enlarged left atrium, prominent left ventricular trabeculations, without diagnostic criteria for non-compaction. Objective Vital Signs and I&Os Vital Signs Date Time Temp Pulse Resp B/P B/P Pulse O2 O2 Flow FiO2 Mean Ox Delivery Rate 07/15 0600 98.7 71 20 138/82 96 07/14 2231 98.0 72 18 128/62 96 07/14 1506 98.7 84 18 140/70 94 Nasal 2.0L Cannula Intake & Output 07/15 1600 07/15 0800 07/15 0000 07/14 1600 07/14 0800 07/14 0000 Intake Total 800 600 840 830 700 950 Output Total 1200 1450 1650 1550 1075 Balance -400 -850 -810 830 -850 -125 Intake, IV 350 400 310 Intake, Oral 800 600 840 480 300 640 Output, Urine 1200 1450 1650 1550 1075 Patient 145 lb Weight Weight Reported by Patient Measurement Method Physical Exam: Alert oriented in no apparent distress HEENT exam grossly normal Neck is supple trachea midline absence of jugular venous distention Cardiac: S1 and S2 are normal, 2/6 systolic ejection murmur at the left sternal border. Pulmonary: good lung expansion bilaterally, lungs are clear GI: Bowel sounds present no distention no pain upon palpation Lower extremities: Good capillary refill absence of edema Current Medications: Current Medications Sig/[place] Start time Last Medication Dose Route Stop Time Status Admin Sodium Chloride 1,000 ML Q20H 07/13 1715 DC 07/13 IV 07/14 1314 1721 Results Last 48 Hrs of Labs/Mics: Laboratory Tests 07/15/17 0630: Iron 45 L, TIBC 206 L, Ferritin 243.0, Total Bilirubin 4.5 H, Direct Bilirubin 1.3 H, AST 44, ALT 46, Alkaline Phosphatase 65, Total Protein 6.6, Albumin 3.4 L, Folate 6.2, CBC w Diff NO MAN DIFF REQ, RBC 1.53 L, MCV 99.2 H , MCH 34.4 H, MCHC 34.7, RDW 26.1 H, MPV 7.9, Gran % 75.0, Lymphocytes % 8.7 L, Monocytes % 13.1 H, Eosinophils % 3.0, Basophils % 0.2, Absolute Granulocytes 16.7 H, Absolute Lymphocytes 1.9, Absolute Monocytes 2.9 H, Absolute Eosinophils 0.7, Absolute Basophils 0 07/14/17 1038: Sodium Cancelled, Potassium Cancelled, Chloride Cancelled, Carbon Dioxide Cancelled, Anion Gap Cancelled, BUN Cancelled, Creatinine Cancelled, BUN/ Creatinine Ratio Cancelled 07/14/17 0643: Anion Gap 9, Estimated GFR > 60, BUN/Creatinine Ratio 17.0, Magnesium 1.9, Total Bilirubin 3.6 H, Direct Bilirubin 0.9 H, AST 50, ALT 52, Alkaline Phosphatase 60, Total Protein 6.5, Albumin 3.3 L, CBC w Diff MAN DIFF ORDERED, RBC 1.58 L, MCV 100.3 H, MCH 34.1 H, MCHC 34.0, RDW 24.7 H, MPV 8.5, Gran % 73.5, Lymphocytes % 10.3 L, Monocytes % 11.8 H, Eosinophils % 3.9, Basophils % 0.5, Absolute Granulocytes 13.3 H, Segmented Neutrophils 73, Band Neutrophils 3, Absolute Lymphocytes 1.9, Lymphocytes 11 L, Monocytes 7, Absolute Monocytes 2.1 H, Eosinophils 3, Absolute Eosinophils 0.7, Basophils 3 H, Absolute Basophils 0.1, Nucleated RBCs 1 H, Platelet Estimate INCREASED, Polychromasia 2+, Poikilocytosis 4+, Anisocytosis 4+, Macrocytic Cells 2+, Ovalocytes 3+, Elliptocytes 2+ 07/13/17 1300: Troponin I 0.04 Assessment/Plan Assessment/Plan Wide-complex tachycardia suspicious for ventricular tachycardia. Patient will be transferred to [facility] for complete electrophysiological workup including a cardiac MRI, and likely electrophysiology study. No beta blockers or other antiarrhythmic should be used, in order not to interfere with the electrophysiology study, given that he has been stable since his arrival and will be kept on telemetry with close surveillance. However should he have another episode of wide-complex tachyarrhythmia, amiodarone should be used +/- a beta yonatan. This was discussed with the patient, educational material was also given to the patient regarding wide-complex tachycardia arrhythmias. He is ready to be transferred to [facility] today. Continue telemetry? Yes
--- NOTE | 2017-07-15 13:22 | PN- Att Addend ---
Attending Addendum Attending Brief Note Patient seen and examined. Plan of care discussed with the medical team and the patient. Available lab work and radiology test reports were reviewed. quality assurance monitor chassis shows normal sinus rhythm. Patient has no new symptoms of palpitations. Denies any chest pain. He denies any nausea vomiting fever chills chest pains. Exam: General: Patient awake alert oriented without any distress CVS: S1 plus S2 without any murmur or gallops Chest: Few scattered crepitation without any wheeze. There is no respiratory distress. 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 Plan * patient will be transferred to [facility] for electrophysiology study * Continue telemetry monitoring * Patient adamant that he does not need a transfusion and would only accept transfusion in dire emergencies Laboratory Tests 07/15/17 0630: Iron 45 L, TIBC 206 L, Ferritin 243.0, Total Bilirubin 4.5 H, Direct Bilirubin 1.3 H, AST 44, ALT 46, Alkaline Phosphatase 65, Total Protein 6.6, Albumin 3.4 L, Folate 6.2, CBC w Diff NO MAN DIFF REQ, RBC 1.53 L, MCV 99.2 H , MCH 34.4 H, MCHC 34.7, RDW 26.1 H, MPV 7.9, Gran % 75.0, Lymphocytes % 8.7 L, Monocytes % 13.1 H, Eosinophils % 3.0, Basophils % 0.2, Absolute Granulocytes 16.7 H, Absolute Lymphocytes 1.9, Absolute Monocytes 2.9 H, Absolute Eosinophils 0.7, Absolute Basophils 0 07/14/17 1038: Sodium Cancelled, Potassium Cancelled, Chloride Cancelled, Carbon Dioxide Cancelled, Anion Gap Cancelled, BUN Cancelled, Creatinine Cancelled, BUN/ Creatinine Ratio Cancelled 07/14/17 0643: Anion Gap 9, Estimated GFR > 60, BUN/Creatinine Ratio 17.0, Magnesium 1.9, Total Bilirubin 3.6 H, Direct Bilirubin 0.9 H, AST 50, ALT 52, Alkaline Phosphatase 60, Total Protein 6.5, Albumin 3.3 L, CBC w Diff MAN DIFF ORDERED, RBC 1.58 L, MCV 100.3 H, MCH 34.1 H, MCHC 34.0, RDW 24.7 H, MPV 8.5, Gran % 73.5, Lymphocytes % 10.3 L, Monocytes % 11.8 H, Eosinophils % 3.9, Basophils % 0.5, Absolute Granulocytes 13.3 H, Segmented Neutrophils 73, Band Neutrophils 3, Absolute Lymphocytes 1.9, Lymphocytes 11 L, Monocytes 7, Absolute Monocytes 2.1 H, Eosinophils 3, Absolute Eosinophils 0.7, Basophils 3 H, Absolute Basophils 0.1, Nucleated RBCs 1 H, Platelet Estimate INCREASED, Polychromasia 2+, Poikilocytosis 4+, Anisocytosis 4+, Macrocytic Cells 2+, Ovalocytes 3+, Elliptocytes 2+ 07/13/17 1300: Troponin I 0.04 07/13/17 1205: Urine Opiates Screen < 100, Methadone Screen < 40, Barbiturate Screen < 60, Ur Phencyclidine Scrn < 6.00, Amphetamines Screen < 100, U Benzodiazepines Scrn < 85, Urine Cocaine Screen < 50, Urine Cannabis Screen < 5.00, Urinalysis LIGHT H , Urine Color YEL, Urine Clarity CLEAR, Urine pH 6.0, Ur Specific [place] 1.010, Urine Protein TRACE H, Urine Ketones NEG, Urine Nitrite NEG, Urine Bilirubin NEG, Urine Urobilinogen 1.0, Ur Leukocyte Esterase NEG, Ur Microscopic SEDIMENT EXAMINED, Urine RBC 1-3, Urine WBC RARE, Urine Mucus FEW, Urine Hemoglobin TRACE -INTACT H, Urine Glucose NEG 07/13/17 0714: Troponin I 0.06 07/12/17 1946: Anion Gap 18 H, Estimated GFR > 60, BUN/Creatinine Ratio 15.8, Glucose 128 H, Calcium 9.0, Magnesium 1.6, Total Bilirubin 6.5 H, Direct Bilirubin 2.5 H, AST 65 H, ALT 48, Alkaline Phosphatase 89, Troponin I < 0.01, Total Protein 8.7 H, Albumin 4.7, Globulin 4.0, Albumin/Globulin Ratio 1.2, Free T4 1.43, Total T3 0.91 L, TSH &T3 &Free T4 Intrp 5.510 H, CBC w Diff MAN DIFF ORDERED, RBC 1.94 L, MCV 96.8 H, MCH 34.3 H, MCHC 35.5, RDW 28.3 H, MPV 7.6, Gran % 72.5, Lymphocytes % 17.5 L, Monocytes % 8.1, Eosinophils % 1.5, Basophils % 0.4, Absolute Granulocytes 16.7 H, Segmented Neutrophils 81 H, Band Neutrophils 1, Absolute Lymphocytes 4.0 H, Lymphocytes 14 L, Monocytes 4, Absolute Monocytes 1.9 H, Absolute Eosinophils 0.4, Absolute Basophils 0.1, Platelet Estimate VERIFIED BY SMEAR, Polychromasia 1+, Poikilocytosis 2+, Anisocytosis 2+, Macrocytic Cells 1+, Fld Total RBCs Counted 100 Vital Signs Date Time Temp Pulse Resp B/P B/P Pulse O2 O2 Flow FiO2 Mean Ox Delivery Rate 07/15 0600 98.7 71 20 138/82 96 07/14 2231 98.0 72 18 128/62 96 07/14 1506 98.7 84 18 140/70 94 Nasal 2.0L Cannula Intake & Output 07/15 1600 07/15 0800 07/15 0000 Intake Total 800 600 840 Output Total 1200 1450 1650 Balance -400 -850 -810 Intake, Oral 800 600 840 Output, Urine 1200 1450 1650 Patient 145 lb Weight Weight Reported by Patient Measurement Method Total time spent in preparation for discharge plan, patient education, and CMR preparation was 35 minutes. Patient will be going to [facility].
== END 2017-07-15 13:00 | disposition short-term general hospital (02) | DRG 310 ==
LOC: ERH 19:29 → ERHI 22:51 → ENRESERV 07-13 00:31 → CANRESERV 07-13 00:31 → ENRESERV 07-13 00:40 → 1NO 07-13 01:31
PROVIDERS: Emergency Medicine; Internal Medicine Endocrinology, Diabetes & Metabolism
DX: I47.1 Supraventricular tachycardia (principal); I47.2 Ventricular tachycardia; D57.1 Sickle-cell disease without crisis; I45.10 Unspecified right bundle-branch block; E80.6 Other disorders of bilirubin metabolism; D72.829 Elevated white blood cell count, unspecified; D50.8 Other iron deficiency anemias; Z87.09 Personal history of other diseases of the respiratory system; Z88.2 Allergy status to sulfonamides; Z88.8 Allergy status to other drugs, medicaments and biological substances; Z90.49 Acquired absence of other specified parts of digestive tract; Z82.79 Family history of other congenital malformations, deformations and chromosomal abnormalities; D47.3 Essential (hemorrhagic) thrombocythemia; R79.89 Other specified abnormal findings of blood chemistry; D50.9 Iron deficiency anemia, unspecified
CPT/HCPCS: 1NSP; 36592; 71045; 80307; 81001; 82436; 93005; 93010; 96374; 96375; 96376; 99291; J0153; J0282